=== PATIENT | female | born 1975 | race Caucasian/White ===

== ENCOUNTER 2025-07-19 07:42 | Outpatient (CLI) | payer OTHER, SELFPAY ==
--- OUTSIDE RECORDS SUMMARY | 2024-04-11 16:30 | XMS_ITS ---
Author Organization [facility] [place] ([address]) Address [address] [place] [address] Care Team Providers Care Land Degradation Analyst Name Role Phone Renaldo Anaya Primary Care Provider Unavailab le Soraida Lange Unavailable [phone] ZZ-Migration, Provider Unavailable Unavailab le REASON FOR VISIT [facility] To [facility] Conversion Encounter Medications Medication SIG (Take, Route, Frequency, Duration) Notes Start Date End Date Status Flonase Allergy Relief 50 MCG/ACT 1 spray(s) intranasally once a day Not-Taking predniSONE 20 MG ; Duration: 6 Active Arnuity Ellipta 100 MCG/ACT 100 mcg inhaled every 24 hours; Duration: 90 days Active Azelastine HCl 137 MCG/SPRAY 2 spray(s) intranasally 2 times a day; Duration: 90 days Active Xyzal Allergy 24HR 5 MG 1 tablet PO daily Active PROAIR HFA 90 MCG/INH INHALE 2 PUFFS PO Q 4 H PRF SOB; Duration: 16 *Please review for potential replacement for e-prescription and drug interaction check* Active Encounters Encounter Location Date Provider Diagnosis [facility] [place] [address] 04/11/2024 Provider ZZ-Migration Allergic rhinitis due to pollen J30.1 and Chronic sinusitis, unspecified J32.9 Assessments Encounter Date Diagnosis (ICD Code) Assessment Notes Treatment Notes Treatment Clinical Notes Section Notes 04/11/2024 Allergic rhinitis due to pollen (ICD-10 - J30.1) 04/11/2024 Chronic sinusitis, unspecified (ICD-10 - J32.9) Plan Of Treatment Medication Medication Name Sig Start Date Stop Date Notes Arnuity Ellipta 100 MCG/ACT 100 mcg inha led every 24 hours; Duration: 90 days Azelastine HCl 137 MCG/SPRAY 2 spray(s) intranasally 2 times a day; Duration: 90 days Xyzal Allergy 24HR 5 MG 1 tablet PO daily Progress Notes * Miguel Angel WEIRB: 5 (49 yo F)Acc No.[id number]:04/11/2024 Patient: Javy TRUJILLO Provider: January Frey :1975 A ge:48 Y S ex:Female Date:04/11/2024 Address:[address] [place], [place] [id number] Pcp:Renaldo Anaya Subjective: * Chief Complaints: * 1 . [facility] To [facility] Conversion Encounter. * Medical History: * Medications: T aking PROAIR HFA 90 MCG/INH AEROSOL INHALE 2 PUFFS PO Q 4 H PRF SOB , Notes to Pharmacist: *Please review for potential replacement for e-prescription and drug interaction check*, Taking predniSONE 20 MG Tablet , Not-Taking/PRN Flonase Allergy Relief 50 MCG/ACT Suspension 1 spray(s) intranasally once a day Objective: * Vitals: Assessment: * Assessment: 1. A llergic rhinitis due to pollen - J30.1 2 . C hronic sinusitis, unspecified - J32.9 Plan: * Treatment: 2. C hronic sinusitis, unspecified Continue Azelastine HCl Solution, 137 MCG/SPRAY, 2 spray(s), intranasally, 2 times a day, 90 days, 3, Refills 1. 3. O thers Refill Arnuity Ellipta Aerosol Powder Breath Activated, 100 MCG/ACT, 100 mcg, inhaled, every 24 hours, 90 days, 3, Refills 1. * Billing Information: * Visit Code: * Procedure Codes: * Electronic signature of Priscila BRANTLEY-Shante on 07/19/2025 at 07:59 AM CDT Sign off status: Pending * Provider: January Frey Date: 0 04/11/2024 Generated for Lou marin/Kamron/Luiza on: 0 07/19/2025 07:59 AM CDT
--- OUTSIDE RECORDS SUMMARY | 2024-10-06 12:30 | XMS_ITS ---
Author Organization [facility] [place] ([address]) Address [address] [place] [address] Care Team Providers Care Production Scheduler Name Role Phone Renaldo Anaya Primary Care Provider Unavailab Soraida Culver Unavailable [phone] REASON FOR VISIT [facility] follow-up Encounters Encounter Location Date Provider Diagnosis [facility] [address] [place] [address] 10/06/2024 Soraida Lange Plan Of Treatment No Information Progress Notes * Miguel Angel WEIRB: 5 (49 yo F)Acc No.[id number]:10/06/2024 Progress Notes Patient: Javy TRUJILLO Provider: Ivan Lange MD :1975 A ge:48 Y S ex:Female Date:10/06/2024 Address:[address] [place] Pcp:Renaldo Anaya Subjective: * Chief Complaints: * 1 . ARC follow-up. * Medical History: Objective: * Vitals: Assessment: Plan: * Treatment: * Billing Information: * Visit Code: * Procedure Codes: * Electronic signature of Clarice Lange MD on 07/19/2025 at 08:01 AM CDT Sign off status: Pending * Provider: Ivan Lange MD Date: 1 12/07/2023 Generated for Lou marin/Kamron/Luiza on: 0 07/19/2025 08:01 AM CDT
--- OUTSIDE RECORDS SUMMARY | 2024-11-12 12:30 | XMS_ITS ---
Author Organization [facility] [place] ([address]) Address [address] [place] [address] Care Team Providers Care Javascript Ui Developer Name Role Phone Renaldo Anaya Primary Care Provider Unavailab Soraida Culver Unavailable [phone] Laure Zhong Unavailable [phone] REASON FOR VISIT [facility] follow-up Encounters Encounter Location Date Provider Diagnosis [address] [address] 11/12/2024 Laure Zhong Plan Of Treatment No Information Progress Notes * Kyle WEIRaDOB: 5 (49 yo F)Acc No.[id number]:11/12/2024 Progress Notes Patient: Javy TRUJILLO Provider: JERRELL Johnson :1975 A ge:49 Y S ex:Female Date:11/12/2024 [address] [facility] Pcp:Renaldo Anaya Subjective: * Chief Complaints: * 1 . ARC follow-up. * Medical History: Objective: * Vitals: Assessment: Plan: * Treatment: * Billing Information: * Visit Code: * Procedure Codes: * Electronic signature of Laure Zhong DNP, FNP-C on 07/19/2025 at 08:00 AM CDT Sign off status: Pending * Provider: Jose Manuel Zhong DNP RATE EXAMINER-C Date: 0 11/12/2024 Generated for Lou Baker on: 0 07/19/2025 08:00 AM CDT
--- NOTE | ~2025-07-19 | US_ITS ---
EXAMINATION: US thyroid DATE: 07/19/2025 10:35 INDICATION: Syncope and collapse. Thyroid nodules. TECHNIQUE: Multiple ultrasound images of the thyroid were obtained. COMPARISON: 10/09/2018 FINDINGS: The right thyroid lobe measures 5.1 x 2.3 x 1.9 cm. The left thyroid lobe measures 5.9 x 2.5 x 1.6 cm. No significant interval change in a previously 0.9 cm, currently 1.0 cm solid wider than tall isoechoic nodule with smooth margins the superficial right thyroid lobe (TI-RADS 3, mildly suspicious , FNA if >=2.5 cm, annual followup is >=1.5 cm). Slight decrease in size of a previously 10 mm, currently 6 mm solid wider than tall hypoechoic nodule at the deep right thyroid lobe. (TI-RADS 4, moderately suspicious , FNA if >=1.5 cm, annual followup is >=1 cm). Minimal increase in size of a previously 1.4 cm, currently 1.5 cm round solid isoechoic nodule with smooth to ill-defined margins and without echogenic foci in the left thyroid lobe, also TI-RADS 4. IMPRESSION: 1. No significant change in a few bilateral thyroid nodules, the largest a 1.5 cm TI RADS 4 left thyroid nodule which at the threshold for recommendation for biopsy, given interval stability over nearly 7 years however could consider continued ultrasound follow-up. Reviewed, dictated and finalized at location A. IMPRESSION: 1. No significant change in a few bilateral thyroid nodules, the largest a 1.5 cm TI RADS 4 left thyroid nodule which at the threshold for recommendation for biopsy, given interval stability over nearly 7 years however could consider con tinued ultrasound follow-up.
--- OUTSIDE RECORDS SUMMARY | 2025-07-19 07:59 | XMS_ITS | Encounter Summary ---
Author Organization [facility] Address [address] [place] [address] Care Team Providers Care Product Promoter Sales Person Name Role Phone Renaldo Anaya MD Primary Care Provider Encounter Details Date Type Department Care Team (Late st Contact Info) Description 12/12/2023 MyChart Message Enc [facility] Family Medicine - [place] [address] [place] [address] Renaldo Anaya MD [address] [place], [place] [phone] Not a question but a drop of latest test results Social History Tobacco Use Types Packs/Day Years Used Date Smoking Tobacco: Never Passive Smoke Exposure: Never Smokeless Tobacco: Never Comments:Physician will disc uss if necessary Alcohol Use Standard Drinks/Week Comments Not Currently 0 (1 standard drink = 0.6 oz pure alcohol) Alcohol is maybe 1 drink rvery 2-3 months. It messed with my PHQ-2 Answer Date Recorded Patient Health Questionnaire-2 Score 0 12/12/2023 Comments No Sex and Gender Information Value Date Recorded Sex Assigned at Female 02/26/2025 8:59 AM CDT Legal Sex Female 10:38 PM CDT Gender Identity Female 02/26/2025 8:59 AM CDT Sexual Orientation Straight 02/26/2025 8: 59 AM CDT documented as of this encounter Functional Status * Over the past 2 weeks, how often have you been bothered by any of the following problems? Question Answer Date of Assessment Author Status Little interest or pleasure in doing things Not at all 12/12/2023 8:27 AM DEMENTIA PROGRAM DIRECTOR Gilbert Myrick , Nurse Can Stacker I Active Feeling down, depressed, or hopeless Not at all 12/12/2023 8:27 AM DEMENTIA PROGRAM DIRECTOR Lang Myrick, Nurse Can Stacker I Active Patient Health Questionnaire-2 Score 0 12/12/2023 8:27 AM DEMENTIA PROGRAM DIRECTOR Gilbert Myrick, Nurse Can Stacker I Active documented as of this encounter Plan of Treatment Not on file documented as of this encounter Visit Diagnoses Not on filedocumented in this encounter Additional Health Concerns Infection Onset Date Last Indicated Resolved Time COVID-19 Rule Out 11/10/2024 11/10/2024 11/10/2024 2:43 PM DEMENTIA PROGRAM DIRECTOR Assessment Noted Time PHQ-9 Depression Total Score: 19 023 8:06 AM CDT documented as of this encounter Care Teams Product Promoter Sales Person Relationship Specialty Start Date End Date Renaldo Anaya MD [address] [place] [address] PCP - General FAMILY PRACTICE 12/21/20 documented as of this encounter
--- OUTSIDE RECORDS SUMMARY | 2025-07-19 07:59 | XMS_ITS | Encounter Summary ---
Author Organization [facility] [place] [facility] Address [address] [place] [address] Care Team Providers Care Cabinet Builder Name Role Phone Renaldo Anaya MD Primary Care Provider Encounter Details Date Type Department Care Team (Late st Contact Info) Description 01/01/2024 MyChart Message Enc [facility] Family Medicine - [place] [address] [place] [address] Renaldo Anaya MD [address] [place], [place] [phone] Heavy Metal hair test Social History Tobacco Use Types Packs/Day Years [...] AM CDT documented as of this encounter Plan of Treatment Not on file documented as of this encounter Visit Diagnoses Not on filedocumented in this encounter Additional Health Concerns Infection Onset Date Last Indicated Resolved Time COVID-19 Rule Out 11/10/2024 11/10/2024 11/10/2024 2:43 PM ADVANCED PRACTICE PROFESSIONAL Assessment Noted Time PHQ-9 Depression Total Score: 19 023 8:06 AM CDT documented as of this encounter Care Teams Cabinet Builder Relationship Specialty Start Date End Date Renaldo Anaya MD [address] [address] PCP - General FAMILY PRACTICE 12/21/20 documented as of this encounter
--- OUTSIDE RECORDS SUMMARY | 2025-07-19 07:59 | XMS_ITS | Encounter Summary ---
Author Organization [facility] Address [address] [place] [address] Care Team Providers Care C D Stripper Name Role Phone Renaldo Anaya MD Primary Care Provider Encounter Details Date Type Department Care Team (Late st Contact Info) Description 05/21/2024 MyChart Message Enc [facility] Family Medicine - [place] [address] [place] [address] Renaldo Anaya MD [address] [place], [place] [phone] Stye on my eyelid? Social History Tobacco Use Types Packs/Day Years [...] Rule Out 11/10/2024 11/10/2024 11/10/2024 2:43 PM BAR PILOT Assessment Noted Time PHQ-9 Depression Total Score: 19 023 8:06 AM CDT documented as of this encounter Care Teams C D Stripper Relationship Specialty Start Date End Date Renaldo Anaya MD [address] [place] [address] PCP - General FAMILY PRACTICE 12/21/20 documented as of this encounter
--- OUTSIDE RECORDS SUMMARY | 2025-07-19 08:00 | XMS_ITS | Encounter Summary ---
Author Organization [facility] Care Team Providers Care Mitochondrial Disorders Counselor Name Role Phone Renaldo Anaya MD Primary Care Provider +1- [phone] Encounter Details Date Type Department Care Team (Latest Contact Info) Description 10/16/2018 Orders Only [facility] ProviderMary MD [address] [place] [address] Social History Tobacco Use Types Packs/Day Years Used Date Smoking Tobacco: Never Assessed Comments Unknown Sex and Gender Information Value Date Recorded Sex Assigned at Not on file Legal Sex Female 7:11 PM INTERNAL INVESTIGATOR Gender Identity Not on file Sexual Orientation Not on file documented as of this encounter Plan of Treatment Not on file documented as of this encounter Procedures Procedure Name Priority Date/Time Associated Diagnosis Comments SCAN - LABS 09/24/2018 12:00 AM INTERNAL INVESTIGATOR SCAN - LABS 09/24/2018 12:00 AM INTERNAL INVESTIGATOR SCAN - LABS 09/24/2018 12:00 AM INTERNAL INVESTIGATOR SCAN - LABS 09/24/2018 12:00 AM INTERNAL INVESTIGATOR SCAN - LABS 09/24/2018 12:00 AM INTERNAL INVESTIGATOR documented in this encounter Results * SCAN - LABS (09/24/2018 12:00 AM INTERNAL INVESTIGATOR) Narrative 09/24/2018 12:00 AM INTERNAL INVESTIGATOR Ordered by an unspecified provider. us Historical Provider MD Final Res ult * SCAN - LABS (09/24/2018 12:00 AM INTERNAL INVESTIGATOR) Narrative 09/24/2018 12:00 AM INTERNAL INVESTIGATOR Ordered by an unspecified provider. Historical Provider MD Final Res ult * SCAN - LABS (09/24/2018 12:00 AM INTERNAL INVESTIGATOR) Narrative 09/24/2018 12:00 AM INTERNAL INVESTIGATOR Ordered by an unspecified provider. [facility] Provider MD Final Res ult * SCAN - LABS (09/24/2018 12:00 AM INTERNAL INVESTIGATOR) Narrative 09/24/2018 12:00 AM INTERNAL INVESTIGATOR Ordered by an unspecified provider. [facility] Provider MD Final Res ult * SCAN - LABS (09/24/2018 12:00 AM INTERNAL INVESTIGATOR) Narrative 09/24/2018 12:00 AM INTERNAL INVESTIGATOR Ordered by an unspecified provider. [facility] Provider Final Res ult documented in this encounter Visit Diagnoses Not on filedocumented in this encounter Care Teams Mitochondrial Disorders Counselor Relationship Specialty Start Date End Date Renaldo Anaya MD [address] [address] PCP - General Family Medicine 09/04/21 documented as of this encounter
--- OUTSIDE RECORDS SUMMARY | 2025-07-19 08:00 | XMS_ITS | Clinical Summary ---
Author Organization [address] Address [address] [place] [address] Care Team Providers Care Wood Fence Erector Name Role Phone Renaldo Anaya MD Primary Care Provider +1- [phone] Allergies Active Allergy Reactions Criticality Noted Date Comments [place] Smut Allergenic Extract Rhinitis Low 022 Pollen Extracts Rhinitis Low 11/06/2021 Medications traZODone (DESYREL) 50 mg tablet TAKE 1 TABLET BY MOUTH AT BEDTIME NEEDED 90 tablet 08/07/20 19 Active acetaminophen 325 mg capsule Tylenol; as directed prn; 0; -May-2013; Active 06/02/20 13 Active albuterol HFA (PROVENTIL HFA,VENTOLIN HFA,PROAIR HFA) 90 mcg/actuation inhaler Inhale 2 puffs as needed 10/18/20 17 Active bisoprolol (ZEBETA) 5 mg tablet 11/23/19 22 Active topiramate (TOPAMAX) 100 mg tablet 11/23/19 22 Active melatonin 5 mg capsule Take by mouth Active multivitamin capsule Take 1 capsule by mouth daily Active phentermine (ADIPEX-P) 37.5 mg tablet Take 37.5 mg by mouth daily 01/11/20 22 Active naproxen (NAPROSYN) 500 mg tabletIndicati ons:Pain Take 1 tablet (500 mg total) by mouth 2 (two) times a day with meals 30 tablet 03/20/20 22 Active methocarbamoL (ROBAXIN) 500 mg tablet Take 1 tablet (500 mg total) by mouth 3 (three) times a day as needed for muscle spasms 30 tablet 03/20/20 Active buPROPion (WELLBUTRIN) 75 mg tablet Take 75 mg by mouth 2 (two) times a day 06/18/20 Active eszopiclone (LUNESTA) 3 mg tabletIndicati ons:Primary insomnia TAKE 1 TABLET BY MOUTH NIGHTLY IMMEDIATELY BEFORE BETIME 30 tablet 12/10/19 Active sertraline (ZOLOFT) 50 mg tablet 11/23/19 22 022 Discontinued Active Problems Problem Noted Date Diagnosed Date Situational mixed anxiety and depressive disorde r 01/10/2022 COVID 11/06/2021 COVID-19 virus infection 11/06/2021 Impingement syndrome of right shoulder Dysthymia 05/24/2021 Renal insufficiency 01/18/2021 Palpitations 11/30/2019 Atrial arrhythmia 04/29/2019 Mild persistent asthma without complication 06/29 Non-seasonal allergic rhinitis 07/25/2018 Raynaud's syndrome without gangrene 07/25/2018 Asthma 02/03/2018 Presence of cardiac pacemaker 08/12/2017 Presence of cardiac pacemaker 08/12/2017 Fear of flying 05/01/2016 Recurrent genital HSV (herpes simplex virus) inf ection 11/28/2015 GERD (gastroesophageal reflux disease) 6 Sjogren-Viky syndrome 04/11/2015 Primary insomnia 04/11/2015 Assessment & Plan (11/12/2023 3:43 PM 2 YEAR OLDS PRESCHOOL TEACHER): Patient continue to use Lunesta 3 mg p.o. Q bedtime. Assessment & Plan (07/30/2023 12:27 PM CDT): I have sent a prescription to the pharmacy for Quviuq 50 mg p.o. Q bedtime. The patient states that she does have approximately one week left of Lunesta. Assessment & Plan (01/14/2023 9:24 AM CDT): The patient will continue Lunesta 3 mg nightly. Patient will continue with cognitive behavior therapy, journaling, exercise, and meditation. Resolved Problems Problem Noted Date Diagnosed Date Resolved Date Primary insomnia 11/28/2021 01/14/2023 Assessment & Plan (01/11/2022 3:11 PM CDT): Patient continue with cognitive behavior therapy and sleep hygiene. Patient continue to the use Lunesta 1.5 mg to 3 mg at night while sleeping. Assessment & Plan (11/28/2021 2:52 PM 2 YEAR OLDS PRESCHOOL TEACHER): The patient has battled insomnia her entire life. I will refill her Lunesta to use 1.5-3 mg at bedtime in addition to melatonin 5 mg at bedtime. We had a long discussion regarding cognitive behavioral therapy for insomnia. I also discussed sleep restriction and good sleep hygiene. I have given her the 2 brochures that are published by the [employer]. She will follow-up here in 6 weeks to assess her progress. Insomnia, psychophysiological 07/25/2018 01/14/2023 Surgical History Surgery Date Site/Laterality Comments INSERT / REPLACE / REMOVE PACEMAKER x2 SINUS SURGERY x2 CERVICAL BIOPSY W/ LOOP ELECTRODE EXCISION HYSTERECTOMY still has ovaries TONSILLECTOMY WISDOM TOOTH EXTRACTION Medical History Medical History Date Comments Pacemaker Anxiety Depression Migraine Social History Tobacco Use Types Packs/Day Years Used Date Smoking Tobacco: Passive Smo ke Exposure - Never Smoker Smokeless Tobacco: Never Comments:as a kid AUDIT-C Answer Date Recorded Q1: How often do you have a drink containing alc ohol? Monthly or less 01/11/2022 Average Number of Drinks Not on file 022 Q3: How often do you have si x or more drinks on one occasion? Never 01/11/2022 Personal Safety Answer Date Recorded Getting School Help Needed Not on file 10/13 Comments No Sex and Gender Information Value Date Recorded Sex Assigned at Not on file Legal Sex Female 7:11 PM 2 YEAR OLDS PRESCHOOL TEACHER Gender Identity Not on file Sexual Orientation Not on file Obstetrics History Last Filed Vital Signs Vital Sign Reading Time Taken Comments Blood Pressure 106/60 11/12/2023 3:28 PM 2 YEAR OLDS PRESCHOOL TEACHER Pulse 90 11/12/2023 3:28 PM 2 YEAR OLDS PRESCHOOL TEACHER Temperature 36.3 C (97.4 F) 11/12/2023 3:28 PM 2 YEAR OLDS PRESCHOOL TEACHER Respiratory Rate 18 11/12/2023 3:28 PM 2 YEAR OLDS PRESCHOOL TEACHER Oxygen Saturation 97% 11/12/2023 3:28 PM 2 YEAR OLDS PRESCHOOL TEACHER Inhaled Oxygen Concentration - - Weight 90.3 kg (199 lb) 11/12/2023 3:28 PM 2 YEAR OLDS PRESCHOOL TEACHER Height 175.3 cm (5' 9) 11/12/2023 3:28 PM 2 YEAR OLDS PRESCHOOL TEACHER Body Mass Index 29.39 11/12/2023 3:28 PM 2 YEAR OLDS PRESCHOOL TEACHER Plan of Treatment Health Maintenance Due Date Last Done Comments Breast Cancer Screening-Mammogram 1975 Colon Cancer Screening-Colonoscopy 1975 Depression Screening 1975 Hepatitis C Screening 1975 Hepatitis B Screening 1993 Regular Well Visit/Exam 18-64 1993 Pneumococcal vaccine <65 (1 of 2 - PCV) 1994 Influenza Vaccine (#1) 2025 DTaP/Tdap/Td Vaccine (2 - Td or Tdap) 09/14/2032 Insurance [facility] CHOICE PLUS [facility] Care Teams Wood Fence Erector Relationship Specialty Start Date End Date Renaldo Anaya MD [address] [place] [address] PCP - General Family Medicine 09/04/21
--- OUTSIDE RECORDS SUMMARY | 2025-07-19 08:00 | XMS_ITS | Encounter Summary ---
Author Organization [facility] Address [address] [place] [address] Care Team Providers Care Felt Cementer Name Role Phone Renaldo Anaya MD Primary Care Provider Encounter Details Date Type Department Care Team (Late st Contact Info) Description 11/27/2022 Spare Backupt Message Enc [facility] Family Medicine - [place] [address] [place] [address] Renaldo Anaya MD [address] [place], [place] [phone] Biometrics results pics in message Social History Tobacco Use Types Packs/Day Years Used Date Smoking Tobacco: Never Smokeless Tobacco: Never Comments:Physician will disc uss if necessary Alcohol Use Standard Drinks/Week Comments Not Currently 0 (1 standard drink = 0.6 oz pur e alcohol) PHQ-2 Answer Date Recorded Patient Health Questionnaire-2 Score 0 11/07/2022 Comments No Sex and Gender Information Value Date Recorded Sex Assigned at Female 02/26/2025 8:59 AM CDT Legal Sex Female 10:38 PM CDT Gender Identity Female 02/26/2025 8:59 AM CDT Sexual Orientation Straight 02/26/2025 8: 59 AM CDT COVID-19 Exposure Response Date Recorded In the last 10 days, have yo u been in contact with someone who was confirmed or suspected to have Coronavirus/COVID-19? No / Unsure 11/07/2022 10:09 AM WELT CUTTER documented as of this encounter Progress Notes * Gilbert Myrick MA - 11/27/2022 9:22 AM CSTFrom: Javy Fields To: Dr. Renaldo Anaya Sent: 11/27/2022 8:26 AM WELT CUTTER Subject: Biometrics results pics in message Here are my ???s and my results. I???m on his hippa. He???s also a patient. I know a few numbers are high on both of ours. We are gonna change some things and lower elwha back on 6 months and see if the number drop before we take meds. Very disappointed in ourselves. That parental disappointment.Lol . CUTTER documented in this encounter Plan of Treatment Not on file documented as of this encounter Visit Diagnoses Not on filedocumented in this encounter Additional Health Concerns Infection Onset Date Last Indicated Resolved Time COVID-19 Rule Out 11/10/2024 11/10/2024 11/10/2024 2:43 PM WELT CUTTER Assessment Noted Time PHQ-9 Depression Total Score: 19 022 7:31 AM CDT documented as of this encounter Care Teams Felt Cementer Relationship Specialty Start Date End Date Renaldo Anaya MD [address] [facility] [address] [place] [address] PCP - General FAMILY PRACTICE 12/21/20 documented as of this encounter
--- OUTSIDE RECORDS SUMMARY | 2025-07-19 08:00 | XMS_ITS | Encounter Summary ---
Author Organization [facility] Address [address] [place] [address] Care Team Providers Care Telephone Triage Nurse Name Role Phone Renaldo Anaya MD Primary Care Provider Encounter Details Date Type Department Care Team (Late st Contact Info) Description 06/22/2021 MyChart Message Enc [facility] Family Medicine - [place] [address] [place] [address] Renaldo Anaya MD [address] [place], [place] [phone] RE: Medication Questions Social History Tobacco Use Types Packs/Day Years Used Date Smoking Tobacco: Never Smokeless Tobacco: Never Comments:Physician will disc uss if necessary Alcohol Use Standard Drinks/Week Comments Not Currently 0 (1 standard drink = 0.6 oz pur e alcohol) PHQ-2 Answer Date Recorded PHQ-2 Score - If the patient scores above 3, please move on to questions 3-9 0 01/18/2021 Comments No Sex and Gender Information Value Date Recorded Sex Assigned at Female 02/26/2025 8:59 AM CDT Legal Sex Female 10:38 PM CDT Gender Identity Female 02/26/2025 8:59 AM CDT Sexual Orientation Straight 02/26/2025 8: 59 AM CDT COVID-19 Exposure Response Date Recorded In the last month, have you been in contact with someone who was confirmed or suspected to have Coronavirus / COVID-19? No / Unsure 05/24/2021 9:04 AM CDT documented as of this encounter Plan of Treatment Not on file documented as of this encounter Visit Diagnoses Not on filedocumented in this encounter Additional Health Concerns Infection Onset Date Last Indicated Resolved Time COVID-19 Rule Out 06/29/2021 06/29/2021 06/30/2021 2:36 PM CDT COVID-19 Rule Out 11/10/2024 11/10/2024 11/10/2024 2:43 PM CONTROL SYSTEMS DRAFTING OFFICER documented as of this encounter Care Teams Telephone Triage Nurse Relationship Specialty Start Date End Date Renaldo Anaya MD [address] [address] PCP - General FAMILY PRACTICE 12/21/20 documented as of this encounter
--- OUTSIDE RECORDS SUMMARY | 2025-07-19 08:00 | XMS_ITS | Encounter Summary ---
Author Organization [facility] Address [address] [place] [address] Care Team Providers Care Surgical Elastic Knitter Name Role Phone Renaldo Anaya MD Primary Care Provider Encounter Details Date Type Department Care Team (Late st Contact Info) Description 09/05/2022 Posit Science Message Enc [facility] Medical [facility] Family Medicine - [place] [address] [place] [address] [facility] Provider Response Social History Tobacco Use Types Packs/Day Years Used Date Smoking Tobacco: Never Smokeless Tobacco: Never Comments:Physician will disc uss if necessary Alcohol Use Standard Drinks/Week Comments Not Currently 0 (1 standard drink = 0.6 oz pur e alcohol) PHQ-2 Answer Date Recorded PHQ-2 Score - If the patient scores above 3, please move on to questions 3-9 3 08/09/2022 Comments No Sex and Gender Information Value [...] suspected to have Coronavirus/COVID-19? No / Unsure 08/09/2022 7:03 AM CDT documented as of this encounter Plan of Treatment Not on file documented as of this encounter Visit Diagnoses Not on filedocumented in this encounter Additional Health Concerns Infection Onset Date Last Indicated Resolved Time COVID-19 Rule Out 11/10/2024 11/10/2024 11/10/2024 2:43 PM SHELL MOLDING ROLLER BLAST OPERATOR Assessment Noted Time PHQ-9 Depression Total Score: 19 022 7:31 AM CDT documented as of this encounter Care Teams Surgical Elastic Knitter Relationship Specialty Start Date End Date Renaldo Anaya MD [address] [address] PCP - General FAMILY PRACTICE 12/21/20 documented as of this encounter
--- OUTSIDE RECORDS SUMMARY | 2025-07-19 08:00 | XMS_ITS | Clinical Summary ---
Author Organization [facility] Address [address] [facility] [place] [address] Care Team Providers Care Electronic Publisher Name Role Phone Rosales Adamson MD Primary Care Provider + [phone] Source Comments [facility],non-owned Affiliates and Associated Physician Practices is amultiple site organization consisting of ambulatory clinics and hospital sitesin [place], [place], [place] and [place]. This disclosure is being madepursuant to the Care Everywhere program and may not contain all information available regarding this patient. Last updated 18.[facility] Allergies No known active allergies Medications * Be aware that medications may not be up to date on this document. Alwaysverify current medications with the patient. fluticasone propionate (FLONASE) 50 MCG/ACT nasal sprayIndication s:Acute maxillary sinusitis, recurrence not specified [place] 2 Sprays into each nostril once daily 1 Bottle 11/26/2016 Active fexofenadine (MALCOLM) 180 MG tablet Take 180 mg by mouth Active albuterol HFA (PROVENTIL;VENT PEÑA;PROAIR) 108 (90 BASE) MCG/ACT inhaler Inhale 2 puffs by mouth every 6 hours as needed for Wheezing or Cough 1 Inhaler 10/18/2017 Active fluticasone furoate (ARNUITY) 100 MCG/ACT inhaler Inhale 1 puff by mouth once daily Active Family History Medical History Relation Name Comments Cancer - Other Father lung cancer Cancer - Other Mother pancreatic Thyroid Disease Mother Relation Name Status Comments Father Alive Mother Social History Tobacco Use Types Packs/Day Years Used Date Smoking Tobacco: Never Smokeless Tobacco: Never Tobacco Cessation:Counseling Given: No Alcohol Use Standard Drinks/Week Comments No 0 (1 standard drink = 0.6 oz pur e alcohol) Comments No Sex and Gender Information Value Date Recorded Sex Assigned at Not on file Legal Sex Female 8:41 AM AUTOMATIC MACHINE ATTENDANT Gender Identity Not on file Sexual Orientation Not on file Last Filed Vital Signs Vital Sign Reading Time Taken Comments Blood Pressure 110/60 07/09/2018 12:31 PM CDT Pulse 91 07/09/2018 12:31 PM CDT Temperature 36.6 C (97.9 F) 07/09/2018 12:31 PM CDT Respiratory Rate 16 07/09/2018 12:31 PM CDT Oxygen Saturation 98% 10/23/2017 5:19 PM AUTOMATIC MACHINE ATTENDANT Inhaled Oxygen Concentration - - Weight 86.2 kg (190 lb) 07/09/2018 12:31 PM CDT Height 172.7 cm (5' 8) 07/09/2018 12:31 PM CDT Body Mass Index 28.89 07/09/2018 12:31 PM CDT Plan of Treatment Health Maintenance Due Date Last Done Comments COLOGUARD (AGES 45-75) - COL ON CA SCREENING 1975 COLON MONITORING 1975 COLONOSCOPY - COLON CA SCREENING 1975 CT COLONOGRAPHY - COLON CA SCREENING 1975 Colorectal Cancer Screening 1975 FIT - COLON CA SCREENING 1975 FLEX SIG - COLON CA SCREENING 1975 LIPID TESTING 1975 MAMMOGRAM 1975 HIV SCREENING 1990 HEPATITIS C SCREENING 10/14/1993 DTAP/TDAP/TD VACCINES (1 - Tdap) 1994 HEPATITIS B VACCINE (1 of 3 - 19+ 3-dose series) 1994 SCREENING FOR DIABETES 10/18/2017 DEPRESSION SCREENING 10/28/2024 COVID-19 VACCINE (1 - 2023-2 5 season) 2025 INFLUENZA VACCINE (#1) 2025 ZOSTER VACCINE (1 of 2) 2025 HIB VACCINE Aged Out No longer eligi ble based on patient's age to complete this topic HPV VACCINE Aged Out No longer eligi ble based on patient's age to complete this topic MENINGOCOCCAL (Group B) VACC INE SHARED DECISION-MAKING Aged Out No longer eligibl e based on patient's age to complete this topic MENINGOCOCCAL GROUPS A/C/Y/W VACCINE Aged Out No longer eligible b ased on patient's age to complete this topic Insurance [facility] Care Teams Electronic Publisher Relationship Specialty Start Date End Date Rosales Adamson MD PCP - General 07/22/20
--- OUTSIDE RECORDS SUMMARY | 2025-07-19 08:00 | XMS_ITS | Encounter Summary ---
Author Organization [facility] Address [address] [place] [address] Care Team Providers Care Preschool Assistant Name Role Phone Renaldo Anaya MD Primary Care Provider Encounter Details Date Type Department Care Team (Late st Contact Info) Description 06/18/2022 MyChart Message Enc [facility] Family Medicine - [place] [address] [place] [address] Renaldo Anaya MD [address] [place], [place] [phone] Finally have therapist appt. But ??? Social History Tobacco Use Types Packs/Day Years Used Date Smoking Tobacco: Never Smokeless Tobacco: Never Comments:Physician will disc uss if necessary Alcohol Use Standard Drinks/Week Comments Not Currently 0 (1 standard drink = 0.6 oz pur e alcohol) PHQ-2 Answer Date Recorded PHQ-2 Score - If the patient scores above 3, please move on to questions 3-9 0 01/10/2022 Comments No Sex and Gender Information Value [...] Rule Out 11/10/2024 11/10/2024 11/10/2024 2:43 PM JAVA ORACLE DEVELOPER Assessment Noted Time PHQ-9 Depression Total Score: 0 01/11/20 8:16 AM CDT documented as of this encounter Care Teams Preschool Assistant Relationship Specialty Start Date End Date Renaldo Anaya MD [address] [place] [address] PCP - General FAMILY PRACTICE 12/21/20 documented as of this encounter
--- OUTSIDE RECORDS SUMMARY | 2025-07-19 08:00 | XMS_ITS | Encounter Summary ---
Author Organization [facility] Address [address] [place] [address] Care Team Providers Care Adult Care Provider Name Role Phone Renaldo Anaya MD Primary Care Provider Encounter Details Date Type Department Care Team (Late st Contact Info) Description 08/21/2021 MyChart Message Enc [facility] Medical [facility] Family Medicine - [place] [address] [place] [address] Renaldo Anaya MD [address] [place], [place] [phone] RE: Question Social History Tobacco Use Types Packs/Day Years [...] have Coronavirus / COVID-19? No / Unsure 08/10/2021 9:30 AM CDT documented as of this encounter Plan of Treatment Not on file documented as of this encounter Visit Diagnoses Not on filedocumented in this encounter Additional Health Concerns Infection Onset Date Last Indicated Resolved Time COVID-19 Rule Out 11/10/2024 11/10/2024 11/10/2024 2:43 PM MACHINE TRIMMER documented as of this encounter Care Teams Adult Care Provider Relationship Specialty Start Date End Date Renaldo Anaya MD [address] [address] PCP - General FAMILY PRACTICE 12/21/20 documented as of this encounter
--- OUTSIDE RECORDS SUMMARY | 2025-07-19 08:00 | XMS_ITS | Encounter Summary ---
Author Organization [facility] Address [address] [place] [address] Care Team Providers Care Cafe Operator Name Role Phone Renaldo Anaya MD Primary Care Provider Encounter Details Date Type Department Care Team (Late st Contact Info) Description 04/24/2023 Spikes Cavell & Cot Message Enc [facility] Medical Group - [facility] [address] [place], [place] [address] AudioCaseFiles, [facility] Provider Air Quality Message Social History Tobacco Use Types Packs/Day Years Used Date Smoking Tobacco: Never Passive Smoke Exposure: Never Smokeless Tobacco: Never Comments:Physician will disc uss if necessary Alcohol Use Standard Drinks/Week Comments Not Currently 0 (1 standard drink = 0.6 oz pur e alcohol) PHQ-2 Answer Date Recorded Patient Health Questionnaire-2 Score 6 01/21/2023 Comments No Sex and Gender Information Value [...] Rule Out 11/10/2024 11/10/2024 11/10/2024 2:43 PM PACKAGING MECHANIC Assessment Noted Time PHQ-9 Depression Total Score: 19 023 8:06 AM CDT documented as of this encounter Care Teams Cafe Operator Relationship Specialty Start Date End Date Renaldo Anaya MD [address] [address] PCP - General FAMILY PRACTICE 12/21/20 documented as of this encounter
--- OUTSIDE RECORDS SUMMARY | 2025-07-19 08:00 | XMS_ITS | Encounter Summary ---
Author Organization [facility] Address [address] [place] [address] Care Team Providers Care Side Seam Machine Operator Name Role Phone Renaldo Anaya MD Primary Care Provider Encounter Details Date Type Department Care Team (Late st Contact Info) Description 03/02/2022 ShapeUp Message [facility] Patient Accounts [address] [place], [place] [phone] [facility] Provider Monthly Credit Card Payments Social History Tobacco Use Types Packs/Day Years [...] Rule Out 11/10/2024 11/10/2024 11/10/2024 2:43 PM FITNESS CENTRE MANAGER Assessment Noted Time PHQ-9 Depression Total Score: 0 01/11/20 8:16 AM CDT documented as of this encounter Care Teams Side Seam Machine Operator Relationship Specialty Start Date End Date Renaldo Anaya MD [address] [place] [address] PCP - General FAMILY PRACTICE 12/21/20 documented as of this encounter
--- OUTSIDE RECORDS SUMMARY | 2025-07-19 08:00 | XMS_ITS | Encounter Summary ---
Author Organization [facility] Address [address] [place] [address] Care Team Providers Care Contracting Executive Name Role Phone Renaldo Anaya MD Primary Care Provider Encounter Details Date Type Department Care Team (Late st Contact Info) Description 11/06/2021 MyChart Message Enc [facility] Medical [facility] Family Medicine - [place] [address] [place] [address] Renaldo Anaya MD [address] [place], [place] [phone] I tested positive for covid on home test. What now Social History Tobacco Use Types Packs/Day Years [...] or suspected to have Coronavirus / COVID-19? Yes 11/06/2021 11:17 AM LAMBSKIN TRIMMER documented as of this encounter Plan of Treatment Not on file documented as of this encounter Visit Diagnoses Not on filedocumented in this encounter Additional Health Concerns Infection Onset Date Last Indicated Resolved Time COVID-19 Rule Out 11/10/2024 11/10/2024 11/10/2024 2:43 PM LAMBSKIN TRIMMER documented as of this encounter Care Teams Contracting Executive Relationship Specialty Start Date End Date Renaldo Anaya MD [address] [address] PCP - General FAMILY PRACTICE 12/21/20 documented as of this encounter
--- OUTSIDE RECORDS SUMMARY | 2025-07-19 08:00 | XMS_ITS | Encounter Summary ---
Author Organization [facility] Address [address] [place] [address] Care Team Providers Care Real Estate Professor Name Role Phone Renaldo Anaya MD Primary Care Provider Encounter Details Date Type Department Care Team (Late st Contact Info) Description 03/05/2023 MyChart Message Enc [facility] Medical Group Family Medicine - [place] [address] [place] [address] Renaldo Anaya MD [address] [place], [place] [phone] From the cortisone shot today Social History Tobacco Use Types Packs/Day Years [...] Recorded In the last 10 days, have mahnaz u been in contact with someone who was confirmed or suspected to have Coronavirus/COVID-19? No / Unsure 03/05/2023 7:57 AM CDT documented as of this encounter Plan of Treatment Not on file documented as of this encounter Visit Diagnoses Not on filedocumented in this encounter Additional Health Concerns Infection Onset Date Last Indicated Resolved Time COVID-19 Rule Out 11/10/2024 11/10/2024 11/10/2024 2:43 PM ETCHER ENAMELING Assessment Noted Time PHQ-9 Depression Total Score: 19 023 8:06 AM CDT documented as of this encounter Care Teams Real Estate Professor Relationship Specialty Start Date End Date Renaldo Anaya MD [address] [address] PCP - General FAMILY PRACTICE 12/21/20 documented as of this encounter
--- OUTSIDE RECORDS SUMMARY | 2025-07-19 08:00 | XMS_ITS | Encounter Summary ---
Author Organization [facility] Address [address] [place] [address] Care Team Providers Care Safety Officer Name Role Phone Renaldo Anaya MD Primary Care Provider Encounter Details Date Type Department Care Team (Late st Contact Info) Description 01/19/2021 MyChart Message Enc [facility] Family Medicine - [place] [address] [place] [address] Renaldo Anaya MD [address] [place], [place] [phone] RE: Question Social History Tobacco Use Types [...] have Coronavirus / COVID-19? No / Unsure 01/18/2021 7:12 AM CDT documented as of this encounter Plan of Treatment Not on file documented as of this encounter Visit Diagnoses Not on filedocumented in this encounter Additional Health Concerns Infection Onset Date Last Indicated Resolved Time COVID-19 Rule Out 06/29/2021 06/29/2021 06/30/2021 2:36 PM CDT COVID-19 Rule Out 11/10/2024 11/10/2024 11/10/2024 2:43 PM EXECUTIVE CYBER LEADER documented as of this encounter Care Teams Safety Officer Relationship Specialty Start Date End Date Renaldo Anaya MD [address] [address] PCP - General FAMILY PRACTICE 12/21/20 documented as of this encounter
--- OUTSIDE RECORDS SUMMARY | 2025-07-19 08:00 | XMS_ITS | Encounter Summary ---
Author Organization [facility] Address [address] [place] [address] Care Team Providers Care Wrist Closer Name Role Phone Renaldo Anaya MD Primary Care Provider Encounter Details Date Type Department Care Team (Late st Contact Info) Description 02/09/2021 MyChart Message Enc [facility] Medical Group Family Medicine - [place] [address] [place] [address] Renaldo Anaya MD [address] [place], [place] [phone] RE: Follow Up/Update Social History Tobacco Use Types Packs/Day Years [...] Rule Out 11/10/2024 11/10/2024 11/10/2024 2:43 PM CIVIL STRUCTURAL DESIGNER documented as of this encounter Care Teams Wrist Closer Relationship Specialty Start Date End Date Renaldo Anaya MD [address] [address] PCP - General FAMILY PRACTICE 12/21/20 documented as of this encounter
--- OUTSIDE RECORDS SUMMARY | 2025-07-19 08:00 | XMS_ITS | Encounter Summary ---
Author Organization [facility] Address [address] [place] [address] Care Team Providers Care Bronc Breaker Name Role Phone Renaldo Anaya MD Primary Care Provider Encounter Details Date Type Department Care Team (Late st Contact Info) Description 12/22/2021 MyChart Message Enc [facility] Medical Group Family Medicine - [place] [address] [place] [address] Renaldo Anaya MD [address] [place], [place] [phone] Need a doctor s note Social History Tobacco Use Types Packs/Day Years [...] Rule Out 11/10/2024 11/10/2024 11/10/2024 2:43 PM DIRECTOR OF WOMEN'S SERVICES documented as of this encounter Care Teams Bronc Breaker Relationship Specialty Start Date End Date Renaldo Anaya MD [address] [address] PCP - General FAMILY PRACTICE 12/21/20 documented as of this encounter
--- OUTSIDE RECORDS SUMMARY | 2025-07-19 08:00 | XMS_ITS | Encounter Summary ---
Author Organization [facility] Address [address] [place] [address] Care Team Providers Care Diplomatic Officer Name Role Phone Renaldo Anaya MD Primary Care Provider Reason for Visit * Reason Onset Date Comments Problem 09/03/2022 Encounter Details Date Type Department Care Team (Late st Contact Info) Description 09/03/2022 MyChart Message Enc [facility] Medical Group Family Medicine - [place] [address] [place] [address] Renaldo Anaya MD [address] [place] [address] Menopause Social History Tobacco Use Types Packs/Day Years [...] AM CDT documented as of this encounter Progress Notes * Gilbert Myrick MA - 09/05/2022 9:17 AM CST My chart message sent to pt informing her of Dr. Anaya's message. Also left message. RUCTOR EXTENSION WORK * Linnea Osorio - 09/04/2022 12:06 PM CST Pt would like a call back. Cb# [phone] RUCTOR EXTENSION WORK documented in this encounter Plan of Treatment Not on file documented as of this encounter Visit Diagnoses Not on filedocumented in this encounter Additional Health Concerns Infection Onset Date Last Indicated Resolved Time COVID-19 Rule Out 11/10/2024 11/10/2024 11/10/2024 2:43 PM INSTRUCTOR EXTENSION WORK Assessment Noted Time PHQ-9 Depression Total Score: 19 022 7:31 AM CDT documented as of this encounter Care Teams Diplomatic Officer Relationship Specialty Start Date End Date Renaldo Anaya MD [address] [address] PCP - General FAMILY PRACTICE 12/21/20 documented as of this encounter
--- OUTSIDE RECORDS SUMMARY | 2025-07-19 08:00 | XMS_ITS | Encounter Summary ---
Author Organization [facility] Address [address] [place] [address] Care Team Providers Care Welfare Project Manager Name Role Phone Renaldo Anaya MD Primary Care Provider Encounter Details Date Type Department Care Team (Late st Contact Info) Description 09/14/2022 MyChart Message Enc [facility] Family Medicine - [place] [address] [place] [address] Renaldo Anaya MD [address] [place], [place] [id number] Question regarding LACERATION REPAIR Social History Tobacco Use Types Packs/Day Years [...] suspected to have Coronavirus/COVID-19? No / Unsure 09/14/2022 10:50 AM OFFICE SERVICES REPRESENTATIVE documented as of this encounter Plan of Treatment Not on file documented as of this encounter Visit Diagnoses Not on filedocumented in this encounter Additional Health Concerns Infection Onset Date Last Indicated Resolved Time COVID-19 Rule Out 11/10/2024 11/10/2024 11/10/2024 2:43 PM OFFICE SERVICES REPRESENTATIVE Assessment Noted Time PHQ-9 Depression Total Score: 19 022 7:31 AM CDT documented as of this encounter Care Teams Welfare Project Manager Relationship Specialty Start Date End Date Renaldo Anaya MD [address] [address] PCP - General FAMILY PRACTICE 12/21/20 documented as of this encounter
--- OUTSIDE RECORDS SUMMARY | 2025-07-19 08:02 | XMS_ITS | Patient Health Record ---
Author Organization [facility] ([address]) Address [address] [place] [address] Care Team Providers Care Quick Print Operator Name Role Phone Renaldo Anaya Primary Care Provider Unavailab Soraida Culver Unavailable [phone] Laure Zhong Unavailable [phone] Allergies No Known Allergies Reason For Referral Reason L50.9 Referring Provider First Name Renaldo Referring Provider Last Name [facility] Referred Organization [facility] Referred Provider Soraida Lange Referred Address [address],[place],[address],[place] Referred Provider Specialty Allergy/Immu nology Referral Priority Routine Medications Medication SIG (Take, Route, Frequency, Duration) Notes Start Date End Date Status Albuterol Sulfate HFA 108 (90 Base) MCG/ACT 2 puffs as needed Inhalation every 4 hrs; Duration: 30 days 11/30/2024 Active Azelastine HCl 137 MCG/SPRAY 2 spray(s) intranasally 2 times a day; Duration: 90 days Active PROAIR HFA 90 MCG/INH INHALE 2 PUFFS PO Q 4 H PRF SOB; Duration: 16 *Please review for potential replacement for e-prescription and drug interaction check* Active Melatonin 5 MG 1 tablet in the evening Orally Once a day Active Benadryl Allergy 25 MG 1 tablet at bedtime as needed Orally Once a day Active Famotidine 20 MG 1 tablet Orally Twice a day; Duration: 30 days Active Cetirizine HCl 10 MG 1 tablet Orally Twice a day; Duration: 30 days Active Immunizations Vaccine Route Administration Date Status Comme nts Influenza Unknown 07/28/2018 Administered Social History Tobacco Use: Social History Observation Description Date Details (start date - stop date) Never Smoker NA - NA Tobacco Control (Standard) Question Answer Notes Tobacco use: Nonsmoker Problems Problem Type SNOMED Code ICD Code Onset Dates Problem Status W/U Status Risk Notes Problem Chronic rhinitis (57373243) Chronic rhinitis (J31.0) Active confirmed Problem Uncomplicated mild persistent asthma (985750823) Mild persistent asthma, uncomplicated (J45.30) Active confirmed Problem Allergic rhinitis caused by pollen (disorder) (54276439) Allergic rhinitis due to pollen (J30.1) Active confirmed Problem Allergic rhinitis caused by animal hair and dander (666106237498638) Allergic rhinitis due to animal (cat) (dog) hair and dander (J30.81) Active confirmed Problem Allergic rhinitis (77082695) Other allergic rhinitis (J30.89) Active confirmed Problem Cough variant asthma (940909720) Cough variant asthma (J45.991) Active confirmed Problem Chronic allergic conjunctivitis (76038855) Other chronic allergic conjunctivitis (H10.45) Active confirmed Vital Signs Blood pressure diastolic 65 mm Hg 11/23/2024 Oximetry 99 % 11/23/2024 Height 69 in 11/23/2024 Blood pressure systolic 106 mm Hg 11/23/2024 Weight 219.6 lbs 11/23/2024 BMI 32.43 kg/m2 11/23/2024 Encounters Encounter Location Date Provider Diagnosis [facility] [address] [place] [address] 09/01/2024 Soraida Lange Angioneurotic edema, initial encounter T78.3XXA ; Idiopathic urticaria L50.1 ; Mild persistent asthma, uncomplicated J45.30 ; Allergic rhinitis due to pollen J30.1 ; Other allergic rhinitis J30.89 and Other chronic allergic conjunctivitis H10.[address] [address] 11/23/2024 Soraida Lange Idiopathic urticaria L50.1 ; Angioneurotic edema, subsequent encounter T78.3XXD ; Mild persistent asthma, uncomplicated J45.30 ; Allergic rhinitis due to pollen J30.1 ; Other allergic rhinitis J30.89 and Other chronic allergic conjunctivitis H10.45 [facility] [address] [place] [address] 08/28/2024 Soraida Lange [facility] [address] [place] [address] 11/30/2024 Soraida Lange Assessments Encounter Date Diagnosis (ICD Code) Assessment Notes Treatment Notes Treatment Clinical Notes Section Notes 09/01/2024 Angioneurotic edema, initial encounter (ICD-10 - T78.3XXA) 09/01/2024 Idiopathic urticaria (ICD-10 - L50.1) Considerations for hives include autoimmune, viral, stress, or idiopathic. Plan to order labwork for further evaluation. Continue treatment with Zyrtec 10 mg BID, Famotidine 40 mg BID. EpiPen to be available at all times. Follow-up in 1 month. A copy of today's consult was sent to the requesting physician. 11/23/2024 Idiopathic urticaria (ICD-10 - L50.1) Considerations for hives include autoimmune, viral, stress, or idiopathic. Recommend having labs drawn for further evaluation. Continue treatment with Zyrtec 10 mg BID and Famotidine. Recommend adding back medications individually over several weeks to see if change in hives. 11/23/2024 Angioneurotic edema, subsequent encounter (ICD-10 - T78.3XXD) 11/23/2024 Mild persistent asthma, uncomplicated (ICD-10 - J45.30) History of persistent asthma and required Arnuity in the past. Recommend continuing prn albuterol. She would like to wait on spirometry at this time becaues she has a URI. 09/01/2024 Mild persistent asthma, uncomplicated (ICD-10 - J45.30) History of persistent asthma and required Arnuity in the past. Recommend continuing prn albuterol. She would like to wait on spirometry at this time becaues she has a URI. 09/01/2024 Allergic rhinitis due to pollen (ICD-10 - J30.1) Javy clearly suffers from atopic disease based upon prior skin testing and clinical history. Accordingly, we have introduced a new, aggressive medication regimen, discussed nasal washes and allergy-specific avoidance measures. 11/23/2024 Allergic rhinitis due to pollen (ICD-10 - J30.1) Javy clearly suffers from atopic disease based upon prior skin testing and clinical history. Accordingly, we have introduced a new, aggressive medication regimen, discussed nasal washes and allergy-specific avoidance measures. 11/23/2024 Other allergic rhinitis (ICD-10 - J30.89) 09/01/2024 Other allergic rhinitis (ICD-10 - J30.89) 09/01/2024 Other chronic allergic conjunctivitis (ICD-10 - H10.45) Given ocular signs and symptoms I encouraged allergy avoidance measures and meds as above. If symptoms persist, consider adding additional medications including intraocular antihistamine/mast cell stabilizer, PRN 11/23/2024 Other chronic allergic conjunctivitis (ICD-10 - H10.45) Given ocular signs and symptoms I encouraged allergy avoidance measures and meds as above. If symptoms persist, consider adding additional medications including intraocular antihistamine/mast cell stabilizer, PRN 09/01/2024 Other 11/23/2024 Other Plan Of Treatment Pending Test Test Name Order Date -Immunoglobulin E, Total 09/01/2024 -CBC With Differential/Platelet 09/01/20 24 -Sedimentation Rate-Westergren 4 -F220 Cinnamon 09/01/2024 -CMP (14) 09/01/2024 TSH reflex to T4F 09/01/2024 Insurance Providers Payer Name Payer Address Payer Phone Subscriber Number Group Number Insured Name Patient Relationship to Insured Coverage Start Date Coverage End Date [facility] [address] [address] [place] [id number] Javy Fields Self - patient is the insured 4 Medical (General) History Medical History History ICD Code Vasovagal reactions Sicca syndrome, unspecified M35.00 Surgical History Surgery Date(Month/Year) Pacemaker 2000,2009 Tonsillectomy 1986 Trosper teeth 2003 Function Endoscopic surgery 2007,2017 Salpingectomy 1994 Leep 1994,1995,1997 Hysterectomy 2004 uterine fibroids 1994
--- OUTSIDE RECORDS SUMMARY | 2025-07-19 08:02 | XMS_ITS | Clinical Summary ---
Author Organization [facility] Address [address] [place] [address] Care Team Providers Care Movie Producer Name Role Phone Renaldo Anaya MD Primary Care Provider Allergies Active Allergy Reactions Criticality Noted Date Comments Ragweed Runny Nose 12/17/2023 Medications Multiple Vitamins-Mineral s (DAILY MULTI VITAMIN/MINERALS OR) Take 1 tablet by mouth daily. 06/04/2013 Active albuterol sulfate HFA 108 (90 Base) MCG/ACT inhaler Inhale 2 puffs into the lungs as needed. 11/20/2020 Active cetirizine (ZYRTEC) 10 MG tabletIndication s:Hives Take 2 tablets (20 mg total) by mouth before breakfast. 60 tablet 1 07/28/2024 Active diphenhydrAMINE (BENADRYL) 25 MG tabletIndication s:Hives Take 2 tablets (50 mg total) by mouth nightly as needed for Itching. 60 tablet 1 07/28/2024 Active famotidine (PEPCID) 20 MG tabletIndication s:Hives Take 1 tablet (20 mg total) by mouth 2 (two) times daily. 60 tablet 1 07/28/2024 Active topiramate (TOPAMAX) 100 MG tabletIndication s:Class 1 obesity due to excess calories without serious comorbidity with body mass index (BMI) of 32.0 to 32.9 in adult Take 1 tablet (100 mg total) by mouth daily. 90 tablet 3 02/26/2025 Active DULoxetine (CYMBALTA) 30 MG capsuleIndicatio ns:Hot flashes due to menopause Take 1 capsule (30 mg total) by mouth daily. 30 capsule 3 02/26/2025 Active Active Problems Problem Noted Date Diagnosed Date Acquired hypothyroidism 12/12/2023 Pure hypercholesterolemia 12/12/2023 Stage 2 chronic kidney disease 12/12/2023 Lymphedema of both lower extremities 12/12/2023 Hot flashes due to menopause 06/03/2023 Non-recurrent acute serous otitis media of right ear 05/08/2023 PVCs (premature ventricular contractions) 2022 Situational mixed anxiety and depressive disorde r 01/10/2022 COVID-19 virus infection 11/06/2021 Renal insufficiency 01/18/2021 Class 1 obesity due to exces s calories without serious comorbidity with body mass index (BMI) of 32.0 to 32.9 in adult 12/21/2020 Atrial arrhythmia 04/29/2019 Non-seasonal allergic rhinitis 07/25/2018 Raynaud's syndrome without gangrene 07/25/2018 Mild persistent asthma without complication ([facility] /HCC) 07/25/2018 Presence of cardiac pacemaker 08/12/2017 Recurrent genital HSV (herpes simplex virus) inf ection 11/28/2015 Sjogren-Viky syndrome ([facility]/HCC) 04/11/2015 Resolved Problems Problem Noted Date Diagnosed Date Resolved Date Impingement syndrome of right shoulder 08/10/2021 08/09/2022 Dysthymia 05/24/2021 06/15/2024 Diarrhea, unspecified type 01/18/2021 0 05/24/2021 Asthma ([facility]/HCC) 02/03/2018 11/07/2022 Fear of flying 05/01/2016 12/12/2023 GERD (gastroesophageal reflux disease) 11/18/2015 11/07/2022 Primary insomnia 04/11/2015 06/15/2024 Encounter for preventive health examination 04/08/2015 12/26/2020 Encounters Date Type Department Care Team Description 06/16/2025 Telephone [facility] Family Medicine - [place] [address], [address] [place] [address] Renaldo Anaya MD Problem from Last 3 Months Immunizations Immunization Administration Dates Next Due Tdap (Adacel) 09/14/2022 Family History Medical History Relation Comments Arthritis Father Hands shoulders knees COPD Father Copd Cancer Father Lung Depression Father Diabetes Father Heart Father Heart Disease Father Hypertension Father Lung Cancer Father Heart Maternal Grandfather Cancer Maternal Grandmother Uterine Cancer Maternal Uncle Lung Arthritis Mother Hands knees Asthma Mother Cancer Mother Pancreatic Depression Mother Heart Mother Heart Disease Mother Hypertension Mother Cancer Paternal Aunt Breast Cancer Paternal Grandfather Esophoreica l Arthritis Paternal Grandmother Diabetes Paternal Grandmother Heart Disease Paternal Grandmother Hypertension Paternal Grandmother Cancer Paternal Uncle 1 Esphogecial Cancer Paternal Uncle 2 Thyroid Cancer Paternal Uncle 3 Bladder Heart Sister 1 MVP Sister 1 Arthritis Sister 2 Hands knees Asthma Sister 2 Relation Status Comments Father Maternal Grandfather Maternal Grandmother Maternal Uncle Mother Paternal Aunt Paternal Grandfather Paternal Grandmother Paternal Uncle 1 Paternal Uncle 2 Paternal Uncle 3 Sister 1 Sister 2 Social History Tobacco Use Types Packs/Day Years Used Date Smoking Tobacco: Never Passive Smoke Exposure: Never Smokeless Tobacco: Never Tobacco Cessation:Counseling Given: No Comments:Physician will discuss if necessary Alcohol Use Standard Drinks/Week Comments Not Currently 0 (1 standard drink = 0.6 oz pure alcohol) Alcohol is maybe 1 drink rvery 2-3 months. It messed with my PHQ-2 Answer Date Recorded Patient Health Questionnaire-2 Score 0 02/26/2025 Comments No Sex and Gender Information Value Date Recorded Sex Assigned at Female 02/26/2025 8:59 AM CDT Legal Sex Female 10:38 PM CDT Gender Identity Female 02/26/2025 8:59 AM CDT Sexual Orientation Straight 02/26/2025 8: 59 AM CDT Last Filed Vital Signs Vital Sign Reading Time Taken Comments Blood Pressure 134/78 02/26/2025 9:00 AM CDT Pulse 78 02/26/2025 9:00 AM CDT Temperature 36.6 C (97.8 F) 02/26/2025 9:00 AM CDT Respiratory Rate 21 02/26/2025 9:00 AM CDT Oxygen Saturation 99% 02/26/2025 9:00 AM CDT Inhaled Oxygen Concentration - - Weight 101.9 kg (224 lb 9.6 oz) 02/26/2025 9:00 AM CDT Height 174 cm (5' 8.5) 01/27/2025 1:50 PM CDT Body Mass Index 33.65 01/27/2025 1:50 PM CDT Plan of Treatment Health Maintenance Due Date Last Done Comments Colorectal Cancer Screening Colonoscopy (10 Years) 1975 Hepatitis C 1993 Hepatitis B Vaccines (1 of 3 - 19+ 3-dose series) 1994 Pneumococcal Vaccine: Pediatrics (0 to 5 Years) and At-Risk Patients (6 to 49 Years) (1 of 2 - PCV) 1994 Annual Physical 12/12/2024 12/12/2023, 11/07/2022 COVID-19 Vaccine (1 - 2023-2 5 season) 2025 Mammogram Screening 09/17/2025 09/17/2023, 08/07/2023 DTaP, Tdap and Td Vaccines ( 2 - Td or Tdap) 09/14/2032 09/14/2022 PHQ-2 ([facility]) Completed 02/26/2025 Meningococcal B Vaccine Aged Out No l onger eligible based on patient's age to complete this topic Meningococcal Vaccine Aged Out No gareth leah eligible based on patient's age to complete this topic RSV Immunizations Under 20 Months Aged Out No longer eligible b ased on patient's age to complete this topic Procedures Procedure Name Priority Date/Time Associated Diagnosis Comments MG DIAG W MARGARET LT DIGI Routine 09/17/2023 2:54 PM BOTTLE CLEANER Abnormal mammogram from Last 3 Months or Most Recently Relevant to Health Maintenance Results * MG DIAG W MARGARET LT DIGI (09/17/2023 2:54 PM BOTTLE CLEANER) Anatomical Region Laterality Modality Breast Left Mammography 09/17/2023 3:02 PM BOTTLE CLEANER Narrative 09/17/2023 3:03 PM BOTTLE CLEANER Examination: Digital left diagnostic mammogram with 3-D tomography Exam Date/Time: 09/17/2023 2:24 PM Reason For Exam: abnormal mammogram Calcification seen on screening exam with further evaluation recommended Comparison: Screening mammogram from outside facility 08/07/2023 Technique: Digital diagnostic mammography of the left breast was performed in addition to 3-D Tomosynthesis technique. This study was read with the assistance of a computer-aided detection system. Tissue density: The breast tissue is heterogeneously dense, which may obscure small masses. Findings:Multiple areas of calcification seen in the left breast. Spot magnification views are taken of multiple areas. On magnification views there are no malignant features appreciated. Typically benign punctate and rounded morphology is are demonstrated. Overall parenchymal pattern of the left breast stable from the comparison exam. Benign axillary lymph nodes again seen. ===== IMPRESSION: ===== 1. No findings in the left breast to suggest malignancy Assessment: ACR BI-RADS 2 - BENIGN FINDING(S) Recommendation: 1:Routine Screening Bilateral Comments: Ordered By: RENALDO ANAYA Interpreted By: Oracio Aguayo MD, 09/17/2023 3:02 PM Renaldo Anaya MD MAMMO Final R esult from Last 3 Months or Most Recently Relevant to Health Maintenance Insurance Care Teams Movie Producer Relationship Specialty Start Date End Date Renaldo Anaya MD [address] [place] [address] PCP - General FAMILY PRACTICE 12/21/20
[2025-07-19 08:13] LABS: Hematocrit 42.0 % (37.0-47.0); Hemoglobin 13.6 g/dL (12.0-15.0); Immature Granulocyte Percent A 0.4 % (0-0.5); Lymphocytes Absolute Auto 2.11 K/mm3 (0.9-3.2); Mean Corpuscular HGB Conc 32.4 g/dl (32-36); Mean Corpuscular Hemoglobin 27.3 pg (26-34); Mean Corpuscular Volume 84.3 fl (80-100); Nucleated Red Blood Cells Absolute Auto 0.000 K/mm3 (0.0-0.012); Nucleated Red Blood Cells Perc 0.0 % (0.0-0.2); Platelet Count Result 246 k/mm3 (150-375); Red Blood Count 4.98 M/mm3 (4.2-5.4); White Blood Count 5.0 K/mm3 (4.5-10.0)
[2025-07-19 08:32] LABS: Alanine Aminotransferase 16 U/L (6-35); Albumin Level 4.1 g/dL (3.5-5.1); Alkaline Phosphatase 102 U/L (38-126); Anion Gap 10 mmol/L (4-12); Aspartate Amino Transferase 22 U/L (14-36); Bilirubin,Total 0.4 mg/dL (0.2-1.3); Blood Urea Nitrogen 19 mg/dL (7-17); Calcium 8.8 mg/dL (8.4-10.2); Carbon Dioxide 22 mmol/L (22-30); Chloride 102 mmol/L (98-107); Estimated Glomerular Filt Rate 55; Glucose 94 mg/dL (65-110); Potassium 3.9 mmol/L (3.4-5.0); Sodium 134 mmol/L (137-145); Total Protein 7.0 g/dL (6.3-8.2)
[2025-07-19 09:10] LABS: Thyroid Stimulating Hormone 4.850 uIU/mL (0.465-4.680)
[2025-07-19 10:57] LABS: Hemoglobin A1C 5.3 % (<5.7)
[2025-07-19 11:40] LABS: Free T3 3.93 pg/mL (2.71-6.16); Free T4 Free Thyroxine 1.03 ng/dL (0.78-2.19)
[2025-07-20 12:08] LABS: FSH 92.2 mIU/mL (.)
== END 2025-07-19 07:43 | disposition home or self-care (01) ==
LOC: ANHIMG 07:43
PROVIDERS: PCP Nurse Practitioner Family; Visit Provider Nurse Practitioner Family
DX: R55 Syncope and collapse (principal); E04.1 Nontoxic single thyroid nodule; M35.00 Sjogren syndrome, unspecified; J44.9 Chronic obstructive pulmonary disease, unspecified; Z76.89 Persons encountering health services in other specified circumstances; Z00.00 Encounter for general adult medical examination without abnormal findings
CPT/HCPCS: 36415; 76536; 80053; 83001; 83036; 84144; 84439; 84443; 84481; 85025; 86376

== ENCOUNTER 2025-10-13 08:06 | Emergency (ER) | payer OTHER, SELFPAY ==
--- OUTSIDE RECORDS SUMMARY | 2024-10-06 11:30 | XMS_ITS ---
Author Organization [facility] [place] ([address]) Address [address] [place] [address] Care Team Providers Care Technology Strategist Name Role Phone Renaldo Anaya Primary Care Provider Unavailab Soraida Culver Unavailable [phone] REASON FOR VISIT [facility] follow-up Encounters Encounter Location Date Provider Diagnosis [facility] [address] [place] [address] 10/06/2024 Soraida Lange Plan Of Treatment No Information Progress Notes * Miguel Angel WEIRB: 5 (49 yo F)Acc No.[id number]:10/06/2024 Progress Notes Patient: Javy TRUJILLO Provider: Ivan Lange MD :1975 A ge:48 Y S ex:Female Date:10/06/2024 Address:[address] [place], [id number] Pcp:Renaldo Anaya Subjective: * Chief Complaints: * 1 . [facility]C follow-up. * Medical History: Objective: * Vitals: Assessment: Plan: * Treatment: * Billing Information: * Visit Code: * Procedure Codes: * Electronic signature of Clarice Lange MD on 10/13/2025 at 08:18 AM SPRAYER AUTOMATIC SPRAY MACHINE Sign off status: Pending * Provider: Ivan Lange MD Date: 1 12/07/2023 Generated for Lou marin/Kamron/Luiza on: 1 12/14/2024 08:18 AM SPRAYER AUTOMATIC SPRAY MACHINE
--- OUTSIDE RECORDS SUMMARY | 2024-11-12 11:30 | XMS_ITS ---
Author Organization [facility] [place] ([address]) Address [address] [place] [address] Care Team Providers Care Family Assessment Worker Name Role Phone Renaldo Anaya Primary Care Provider Unavailab Soraida Culver Unavailable [phone] Laure Zhong Unavailable [phone] REASON FOR VISIT [facility] follow-up Encounters Encounter Location Date Provider Diagnosis [address] [address] 11/12/2024 Laure Zhong Plan Of Treatment No Information Progress Notes * Kyle WEIRaDOB: 5 (49 yo F)Acc No.[id number]:11/12/2024 Progress Notes Patient: Javy TRUJILLO Provider: JERRELL Johnson :1975 A ge:49 Y S ex:Female Date:11/12/2024 [address] [facility] Pcp:Renaldo Anaya Subjective: * Chief Complaints: * 1 . ARC follow-up. * Medical History: Objective: * Vitals: Assessment: Plan: * Treatment: * Billing Information: * Visit Code: * Procedure Codes: * Electronic signature of Laure Zhong DNP, FNP-C on 10/13/2025 at 08:16 AM TRANSPORTATION ASSISTANT Sign off status: Pending * Provider: Jose Manuel Zhong DNP MASTER COOK-C Date: 0 11/12/2024 Generated for Lou Ferguson/Luiza on: 1 12/14/2024 08:16 AM TRANSPORTATION ASSISTANT
[2025-10-13 08:16] VITALS: BP 111/82; PULSE 81; RESP 18; TEMP 36.6; O2SAT 98
--- OUTSIDE RECORDS SUMMARY | 2025-10-13 08:16 | XMS_ITS | Encounter Summary ---
Author Organization [facility] Address [address] [place] [address] Care Team Providers Care Youth Program Director Name Role Phone Renaldo Anaya MD Primary Care Provider Encounter Details Date Type Department Care Team (Late st Contact Info) Description 05/21/2024 MyChart Message Enc [facility] Family Medicine - [place] [address] [place] [address] Renaldo Anaya MD [address] [place], [place] [id number] Stye on my eyelid? Social History Tobacco [...] Rule Out 11/10/2024 11/10/2024 11/10/2024 2:43 PM BUILDING CODE ADMINISTRATOR Assessment Noted Time PHQ-9 Depression Total Score: 19 023 8:06 AM CDT documented as of this encounter Care Teams Youth Program Director Relationship Specialty Start Date End Date Renaldo Anaya MD [address] [place] [address] PCP - General FAMILY PRACTICE 12/21/20 documented as of this encounter
--- OUTSIDE RECORDS SUMMARY | 2025-10-13 08:16 | XMS_ITS | Encounter Summary ---
Author Organization [facility] Care Team Providers Care Cabin Man Name Role Phone Renaldo Anaya MD Primary Care Provider [phone] Encounter Details Date Type Department Care Team (Latest Contact Info) Description 10/16/2018 Orders Only [facility]INCON[facility] ProviderMary MD [address] [place] [address] Social History Tobacco Use Types Packs/Day Years Used Date Smoking Tobacco: Never Assessed Comments Unknown Sex and Gender Information Value Date Recorded Sex Assigned at Not on file Legal Sex Female 7:11 PM WIRE COATING OPERATOR METAL Gender Identity Not on file Sexual Orientation Not on file documented as of this encounter Plan of Treatment Not on file documented as of this encounter Procedures Procedure Name Priority Date/Time Associated Diagnosis Comments SCAN - LABS 09/24/2018 12:00 AM WIRE COATING OPERATOR METAL SCAN - LABS 09/24/2018 12:00 AM WIRE COATING OPERATOR METAL SCAN - LABS 09/24/2018 12:00 AM WIRE COATING OPERATOR METAL SCAN - LABS 09/24/2018 12:00 AM WIRE COATING OPERATOR METAL SCAN - LABS 09/24/2018 12:00 AM WIRE COATING OPERATOR METAL documented in this encounter Results * SCAN - LABS (09/24/2018 12:00 AM WIRE COATING OPERATOR METAL) Narrative 09/24/2018 12:00 AM WIRE COATING OPERATOR METAL Ordered by an unspecified provider. us Historical Provider MD Final Res ult * SCAN - LABS (09/24/2018 12:00 AM WIRE COATING OPERATOR METAL) Narrative 09/24/2018 12:00 AM WIRE COATING OPERATOR METAL Ordered by an unspecified provider. Historical Provider MD Final Res ult * SCAN - LABS (09/24/2018 12:00 AM WIRE COATING OPERATOR METAL) Narrative 09/24/2018 12:00 AM WIRE COATING OPERATOR METAL Ordered by an unspecified provider. [facility] Provider MD Final Res ult * SCAN - LABS (09/24/2018 12:00 AM WIRE COATING OPERATOR METAL) Narrative 09/24/2018 12:00 AM WIRE COATING OPERATOR METAL Ordered by an unspecified provider. [facility] Provider MD Final Res ult * SCAN - LABS (09/24/2018 12:00 AM WIRE COATING OPERATOR METAL) Narrative 09/24/2018 12:00 AM WIRE COATING OPERATOR METAL Ordered by an unspecified provider. [facility] Provider Final Res ult documented in this encounter Visit Diagnoses Not on filedocumented in this encounter Care Teams Cabin Man Relationship Specialty Start Date End Date Renaldo Anaya MD [address] [address] PCP - General Family Medicine 09/04/21 documented as of this encounter
--- OUTSIDE RECORDS SUMMARY | 2025-10-13 08:16 | XMS_ITS | Encounter Summary ---
Author Organization [facility] Address [address] [place] [address] Care Team Providers Care Bean Picker Machine Operator Name Role Phone Renaldo Anaya MD Primary Care Provider Encounter Details Date Type Department Care Team (Late st Contact Info) Description 02/25/2025 MyChart Message Enc [facility] Medical Group Family Medicine - [place] [address], [address] [place] [address] Renaldo Anaya MD [address] [place], [place] [phone] Recurring nose bleeds and fainting feeling Social History Tobacco Use Types Packs/Day Years [...] pleasure in doing things Not at all 02/26/2025 9:00 AM CDT Marlene Modi MA Active Feeling down, depressed, or hopeless Not at all 02/26/2025 9:00 AM CDT Marlene Modi MA Activ e Patient Health Questionnaire-2 Score 0 02/26/2025 9:00 AM CDT Marlene Modi MA Active * If you checked off any problems on this questionnaire so far, Question Answer Date of Assessment Author Status How difficult have these problems made it for you to do your work, take care of things at home, or get along with other people? Not difficult at all 02/26/2025 9:00 AM CDT Marlene Modi MA Active documented as of this encounter Plan of Treatment Not on file documented as of this encounter Visit Diagnoses Not on filedocumented in this encounter Additional Health Concerns Assessment Noted Time PHQ-9 Depression Total Score: 19 01/21/ 023 8:06 AM CDT documented as of this encounter Care Teams Bean Picker Machine Operator Relationship Specialty Start Date End Date Renaldo Anaya MD [address] [place] [address] PCP - General FAMILY PRACTICE 12/21/20 documented as of this encounter
--- OUTSIDE RECORDS SUMMARY | 2025-10-13 08:16 | XMS_ITS | Encounter Summary ---
Author Organization [facility] Address [address] [place] [address] Care Team Providers Care Nuclear Medicine Medical Director Name Role Phone Renaldo Anaya MD Primary Care Provider Encounter Details Date Type Department Care Team (Late st Contact Info) Description 04/24/2023 Trendytat Message Enc [facility] Medical [facility] - [facility] [address] [place], [place] [address] [facility], [facility] Provider Air Quality Message Social History Tobacco [...] Rule Out 11/10/2024 11/10/2024 11/10/2024 2:43 PM UTILITY WORKER Assessment Noted Time PHQ-9 Depression Total Score: 19 023 8:06 AM CDT documented as of this encounter Care Teams Nuclear Medicine Medical Director Relationship Specialty Start Date End Date Renaldo Anaya MD [address] [address] PCP - General FAMILY PRACTICE 12/21/20 documented as of this encounter
--- OUTSIDE RECORDS SUMMARY | 2025-10-13 08:16 | XMS_ITS | Encounter Summary ---
Author Organization [facility] Address [address] [place] [address] Care Team Providers Care 3D Animator Name Role Phone Renaldo Anaya MD Primary Care Provider Encounter Details Date Type Department Care Team (Late st Contact Info) Description 09/14/2022 MyChart Message Enc [facility] Medical Group Family Medicine - [place] [address] [place] [address] Renaldo Anaya MD [address] [facility] [address] [place], [place] [phone] Question regarding LACERATION REPAIR Social History Tobacco [...] Coronavirus/COVID-19? No / Unsure 09/14/2022 10:50 AM SOLID GLASS ROD DOWEL MACHINE OPERATOR documented as of this encounter Plan of Treatment Not on file documented as of this encounter Visit Diagnoses Not on filedocumented in this encounter Additional Health Concerns Infection Onset Date Last Indicated Resolved Time COVID-19 Rule Out 11/10/2024 11/10/2024 11/10/2024 2:43 PM SOLID GLASS ROD DOWEL MACHINE OPERATOR Assessment Noted Time PHQ-9 Depression Total Score: 19 022 7:31 AM CDT documented as of this encounter Care Teams 3D Animator Relationship Specialty Start Date End Date Renaldo Anaya MD [address] [address] PCP - General FAMILY PRACTICE 12/21/20 documented as of this encounter
--- OUTSIDE RECORDS SUMMARY | 2025-10-13 08:16 | XMS_ITS | Encounter Summary ---
Author Organization [facility] Address [address] [place] [address] Care Team Providers Care Chemical Production Technician Name Role Phone Renaldo Anaya MD Primary Care Provider Encounter Details Date Type Department Care Team (Late st Contact Info) Description 03/05/2023 MyChart Message Enc [facility] Medical Group Family Medicine - [place] [address] [place] [address] Renaldo Anaya MD [address] [place], [place] [phone] From the cortisone shot today Social History [...] Rule Out 11/10/2024 11/10/2024 11/10/2024 2:43 PM OUTBOARD MOTOR MECHANIC Assessment Noted Time PHQ-9 Depression Total Score: 19 023 8:06 AM CDT documented as of this encounter Care Teams Chemical Production Technician Relationship Specialty Start Date End Date Renaldo Anaya MD [address] [address] PCP - General FAMILY PRACTICE 12/21/20 documented as of this encounter
--- OUTSIDE RECORDS SUMMARY | 2025-10-13 08:16 | XMS_ITS | Encounter Summary ---
Author Organization [facility] Address [address] [place] [address] Care Team Providers Care Net Front End Developer Name Role Phone Renaldo Anaya MD Primary Care Provider Encounter Details Date Type Department Care Team (Late st Contact Info) Description 01/01/2024 MyChart Message Enc [facility] Medical Group Family Medicine - [place] [address], [address] [place] [address] Renaldo Anaya MD [address] [place], [place] [phone] Heavy Metal hair test Social History Tobacco [...] Rule Out 11/10/2024 11/10/2024 11/10/2024 2:43 PM INFORMATICS SPECIALIST Assessment Noted Time PHQ-9 Depression Total Score: 19 023 8:06 AM CDT documented as of this encounter Care Teams Net Front End Developer Relationship Specialty Start Date End Date Renaldo Anaya MD [address] [address] PCP - General FAMILY PRACTICE 12/21/20 documented as of this encounter
--- OUTSIDE RECORDS SUMMARY | 2025-10-13 08:16 | XMS_ITS | Encounter Summary ---
Author Organization [facility] Address [address] [place] [address] Care Team Providers Care Fishing Tool Operator Name Role Phone Renaldo Anaya MD Primary Care Provider Encounter Details Date Type Department Care Team (Late st Contact Info) Description 12/12/2023 MyChart Message Enc [facility] Medical Group Family Medicine - [place] [address] [place] [address] Renaldo Anaya MD [address] [place], [place] [phone] Not a question but a drop of [...] things Not at all 12/12/2023 8:27 AM SAMPLE STEAMER Gilbert Myrick , Nurse Nuclear Powerplant Mechanic Helper I Active Feeling down, depressed, or hopeless Not at all 12/12/2023 8:27 AM SAMPLE STEAMER Lang Myrick, Nurse Nuclear Powerplant Mechanic Helper I Active Patient Health Questionnaire-2 Score 0 12/12/2023 8:27 AM SAMPLE STEAMER Gilbert Myrick, Nurse Nuclear Powerplant Mechanic Helper I Active documented as of this encounter Plan of Treatment Not on file documented as of this encounter Visit Diagnoses Not on filedocumented in this encounter Additional Health Concerns Infection Onset Date Last Indicated Resolved Time COVID-19 Rule Out 11/10/2024 11/10/2024 11/10/2024 2:43 PM SAMPLE STEAMER Assessment Noted Time PHQ-9 Depression Total Score: 19 023 8:06 AM CDT documented as of this encounter Care Teams Fishing Tool Operator Relationship Specialty Start Date End Date Renaldo Anaya MD [address] [place] [address] PCP - General FAMILY PRACTICE 12/21/20 documented as of this encounter
--- OUTSIDE RECORDS SUMMARY | 2025-10-13 08:17 | XMS_ITS | Encounter Summary ---
Author Organization [facility] Address [address] [place] [address] Care Team Providers Care Thread Spooler Name Role Phone Renaldo Anaya MD Primary Care Provider Encounter Details Date Type Department Care Team (Late st Contact Info) Description 11/27/2022 Viva la Vitat Message Enc [facility] Medical Group Family Medicine - [place] [address] [place] [address] Renaldo Anaya MD [address] [place], [place] [phone] Biometrics results pics in message Social History [...] Coronavirus/COVID-19? No / Unsure 11/07/2022 10:09 AM TONGUE BINDER documented as of this encounter Progress Notes * Gilbert Myrick MA - 11/27/2022 9:22 AM CSTFrom: Javy Fields To: Dr. Renaldo Anaya Sent: 11/27/2022 8:26 AM TONGUE BINDER Subject: Biometrics results pics in message Here are my ???s and my results. I???m on his hippa. He???s also a patient. I know a few numbers are high on both of ours. We are gonna change some things and coquille back on 6 months and see if the number drop before we take meds. Very disappointed in ourselves. That parental disappointment.Lol . UE BINDER documented in this encounter Plan of Treatment Not on file documented as of this encounter Visit Diagnoses Not on filedocumented in this encounter Additional Health Concerns Infection Onset Date Last Indicated Resolved Time COVID-19 Rule Out 11/10/2024 11/10/2024 11/10/2024 2:43 PM TONGUE BINDER Assessment Noted Time PHQ-9 Depression Total Score: 19 022 7:31 AM CDT documented as of this encounter Care Teams Thread Spooler Relationship Specialty Start Date End Date Renaldo Anaya MD [address] [facility] [address] [place] [address] PCP - General FAMILY PRACTICE 12/21/20 documented as of this encounter
--- OUTSIDE RECORDS SUMMARY | 2025-10-13 08:17 | XMS_ITS | Encounter Summary ---
Author Organization [facility] Address [address] [place] [address] Care Team Providers Care Analytics Associate Name Role Phone Renaldo Anaya MD Primary Care Provider Encounter Details Date Type Department Care Team (Late st Contact Info) Description 06/18/2022 MyChart Message Enc [facility] Family Medicine - [place] [address] [place] [address] Renaldo Anaya MD [address] [place], [place] [phone] Finally have therapist appt. But ??? Social [...] Rule Out 11/10/2024 11/10/2024 11/10/2024 2:43 PM HALL TENDER Assessment Noted Time PHQ-9 Depression Total Score: 0 01/11/20 8:16 AM CDT documented as of this encounter Care Teams Analytics Associate Relationship Specialty Start Date End Date Renaldo Anaya MD [address] [place] [address] PCP - General FAMILY PRACTICE 12/21/20 documented as of this encounter
--- OUTSIDE RECORDS SUMMARY | 2025-10-13 08:17 | XMS_ITS | Clinical Summary ---
Author Organization [address] Address [address] [place] [id number] Care Team Providers Care Invoice Machine Operator Name Role Phone Renaldo Anaya MD Primary Care Provider [phone]- [phone] Allergies Active Allergy Reactions Criticality Noted Date Comments Penrose Smut Allergenic Extract Rhinitis Low 022 Pollen [...] 04/11/2015 Assessment & Plan (11/12/2023 3:43 PM LAMINA SEARCHER): Patient continue to use Lunesta 3 mg [...] sleeping. Assessment & Plan (11/28/2021 2:52 PM LAMINA SEARCHER): The patient has battled insomnia her entire life. I will refill her Lunesta to use 1.5-3 mg at bedtime in addition to melatonin 5 mg at bedtime. We had a long discussion regarding cognitive behavioral therapy for insomnia. I also discussed sleep restriction and good sleep hygiene. I have given her the 2 brochures that are published by the [place] [employer]. She will follow-up [...] on file Legal Sex Female 7:11 PM LAMINA SEARCHER Gender Identity Not on file Sexual Orientation Not on file Last Filed Vital Signs Vital Sign Reading Time Taken Comments Blood Pressure 106/60 11/12/2023 3:28 PM LAMINA SEARCHER Pulse 90 11/12/2023 3:28 PM LAMINA SEARCHER Temperature 36.3 C (97.4 F) 11/12/2023 3:28 PM LAMINA SEARCHER Respiratory Rate 18 11/12/2023 3:28 PM LAMINA SEARCHER Oxygen Saturation 97% 11/12/2023 3:28 PM LAMINA SEARCHER Inhaled Oxygen Concentration - - Weight 90.3 kg (199 lb) 11/12/2023 3:28 PM LAMINA SEARCHER Height 175.3 cm (5' 9) 11/12/2023 3:28 PM LAMINA SEARCHER Body Mass Index 29.39 11/12/2023 3:28 PM LAMINA SEARCHER Plan of Treatment Health Maintenance Due Date Last Done Comments Breast Cancer Screening-Mammogram 1975 Colon Cancer Screening-Colonoscopy 1975 Depression Screening 1975 Hepatitis C Screening 1975 Hepatitis B Screening 1993 Regular Well Visit/Exam 18-64 1993 Pneumococcal vaccine <65 (1 of 2 - PCV) 1994 Influenza Vaccine (#1) 2025 DTaP/Tdap/Td Vaccine (2 - Td or Tdap) 09/14/2032 Insurance [facility] ACC[facility] CHOICE PLUS [facility] H[facility]/PPO Address: [facility] [address] [place] [address] [facility] Care Teams Invoice Machine Operator Relationship Specialty Start Date End Date Renaldo Anaya MD [address] [facility] [address] [place] [address] PCP - General Family Medicine 09/04/21
--- OUTSIDE RECORDS SUMMARY | 2025-10-13 08:18 | XMS_ITS | Encounter Summary ---
Author Organization [facility] Address [address] [place] [address] Care Team Providers Care Forestry Instructor Name Role Phone Renaldo Anaya MD Primary Care Provider Encounter Details Date Type Department Care Team (Late st Contact Info) Description 09/05/2022 Scoreoid Message Enc [facility] Medical Group Family Medicine - [place] [address] [place] [address] [facility] Response Social History Tobacco Use Types [...] Rule Out 11/10/2024 11/10/2024 11/10/2024 2:43 PM MECHANICAL DRAWING TEACHER Assessment Noted Time PHQ-9 Depression Total Score: 19 022 7:31 AM CDT documented as of this encounter Care Teams Forestry Instructor Relationship Specialty Start Date End Date Renaldo Anaya MD [address] [address] PCP - General FAMILY PRACTICE 12/21/20 documented as of this encounter
--- OUTSIDE RECORDS SUMMARY | 2025-10-13 08:18 | XMS_ITS | Encounter Summary ---
Author Organization [facility] Address [address] [place] [address] Care Team Providers Care Freezer Operator Name Role Phone Renaldo Anaya MD Primary Care Provider Encounter Details Date Type Department Care Team (Late st Contact Info) Description 02/09/2021 MyChart Message Enc [facility] Medical Group Family Medicine - [place] [address] [place] [address] Renaldo Anaya MD [address] [place], [place] [phone] RE: Follow Up/Update Social History Tobacco Use [...] Rule Out 11/10/2024 11/10/2024 11/10/2024 2:43 PM SALES FLOOR MANAGER documented as of this encounter Care Teams Freezer Operator Relationship Specialty Start Date End Date Renaldo Anaya MD [address] [address] PCP - General FAMILY PRACTICE 12/21/20 documented as of this encounter
--- OUTSIDE RECORDS SUMMARY | 2025-10-13 08:18 | XMS_ITS | Encounter Summary ---
Author Organization [facility] Address [address] [place] [address] Care Team Providers Care Machine Repair Person Name Role Phone Renaldo Anaya MD Primary Care Provider Reason for Visit * Reason Onset Date Comments Problem 09/03/2022 Encounter Details Date Type Department Care Team (Late st Contact Info) Description 09/03/2022 MyChart Message Enc [facility] Medical Group Family Medicine - [place] [address], [address] [place] [address] Renaldo Anaya MD [address] [place] [address] Menopause Social History Tobacco Use [...] of Dr. Anaya's message. Also left message. RAGUS BUNCHER * Linnea Osorio - 09/04/2022 12:06 PM CST Pt would like a call back. Cb# [phone] RAGUS BUNCHER documented in this encounter Plan of Treatment Not on file documented as of this encounter Visit Diagnoses Not on filedocumented in this encounter Additional Health Concerns Infection Onset Date Last Indicated Resolved Time COVID-19 Rule Out 11/10/2024 11/10/2024 11/10/2024 2:43 PM ASPARAGUS BUNCHER Assessment Noted Time PHQ-9 Depression Total Score: 19 022 7:31 AM CDT documented as of this encounter Care Teams Machine Repair Person Relationship Specialty Start Date End Date Renaldo Anaya MD [address] [address] PCP - General FAMILY PRACTICE 12/21/20 documented as of this encounter
--- OUTSIDE RECORDS SUMMARY | 2025-10-13 08:18 | XMS_ITS | Clinical Summary ---
Author Organization [facility] [employer] Address [address] [place] [address] Care Team Providers Care Sign Writer Hand Name Role Phone Rosales Adamson MD Primary Care Provider + [phone] Source Comments [facility],non-owned Affiliates and Associated Physician Practices is amultiple site organization consisting of ambulatory clinics and hospital sitesin [place], [place], [place] and [place]. This disclosure is being madepursuant to the Care Everywhere program and may not contain all information available regarding this patient. Last updated 18.[facility] [employer] Allergies No known active allergies Medications * Be aware that medications may not be up to date on this document. Alwaysverify current medications with the patient. fluticasone propionate (FLONASE) 50 MCG/ACT nasal sprayIndication s:Acute maxillary sinusitis, recurrence not specified [place] 2 Sprays into each nostril once daily [...] on file Legal Sex Female 8:41 AM BARTENDER SERVER Gender Identity Not on file Sexual Orientation Not on file Last Filed Vital Signs Vital Sign Reading Time Taken Comments Blood Pressure 110/60 07/09/2018 12:31 PM CDT Pulse 91 07/09/2018 12:31 PM CDT Temperature 36.6 C (97.9 F) 07/09/2018 12:31 PM CDT Respiratory Rate 16 07/09/2018 12:31 PM CDT Oxygen Saturation 98% 10/23/2017 5:19 PM BARTENDER SERVER Inhaled Oxygen Concentration - - Weight 86.2 [...] DEPRESSION SCREENING 10/28/2024 COVID-19 VACCINE (1 - 2024-2 6 season) 2025 INFLUENZA VACCINE (#1) 2025 ZOSTER [...] patient's age to complete this topic Insurance [facility] Care Teams Sign Writer Hand Relationship Specialty Start Date End Date Rosales Adamson MD PCP - General 07/22/20
--- OUTSIDE RECORDS SUMMARY | 2025-10-13 08:18 | XMS_ITS | Encounter Summary ---
Author Organization [facility] Address [address] [place] [address] Care Team Providers Care Research Study Assistant Name Role Phone Renaldo Anaya MD Primary Care Provider Encounter Details Date Type Department Care Team (Late st Contact Info) Description 03/02/2022 Voxeo Message [facility] Patient Accounts [address] [place], [place] [phone] [facility] Provider Monthly Credit Card Payments Social [...] Rule Out 11/10/2024 11/10/2024 11/10/2024 2:43 PM DRILL SETUP OPERATOR Assessment Noted Time PHQ-9 Depression Total Score: 0 01/11/20 8:16 AM CDT documented as of this encounter Care Teams Research Study Assistant Relationship Specialty Start Date End Date Renaldo Anaya MD [address] [place] [address] PCP - General FAMILY PRACTICE 12/21/20 documented as of this encounter
--- OUTSIDE RECORDS SUMMARY | 2025-10-13 08:18 | XMS_ITS | Encounter Summary ---
Author Organization [facility] Address [address] [place] [address] Care Team Providers Care Heat Treat Puller Name Role Phone Renaldo Anaya MD Primary Care Provider Encounter Details Date Type Department Care Team (Late st Contact Info) Description 01/19/2021 MyChart Message Enc [facility] Medical Group Family Medicine - [place] [address], [address] [place] [address] Renaldo Anaya MD [address] [place], [place] [phone] RE: Question Social History Tobacco Use Types [...] Rule Out 11/10/2024 11/10/2024 11/10/2024 2:43 PM ACTUARIAL SCIENCE TEACHER documented as of this encounter Care Teams Heat Treat Puller Relationship Specialty Start Date End Date Renaldo Anaya MD [address] [address] PCP - General FAMILY PRACTICE 12/21/20 documented as of this encounter
--- OUTSIDE RECORDS SUMMARY | 2025-10-13 08:18 | XMS_ITS | Encounter Summary ---
Author Organization [facility] Address [address] [place] [address] Care Team Providers Care Extractor And Wringer Operator Name Role Phone Renaldo Anaya MD Primary Care Provider Encounter Details Date Type Department Care Team (Late st Contact Info) Description 11/06/2021 MyChart Message Enc [facility] Medical Group Family Medicine - [place] [address] [place] [address] Renaldo Anaya MD [address] [place], [place] [phone] I tested positive for covid on home [...] Coronavirus / COVID-19? Yes 11/06/2021 11:17 AM AUTOMOTIVE GENERAL MANAGER documented as of this encounter Plan of Treatment Not on file documented as of this encounter Visit Diagnoses Not on filedocumented in this encounter Additional Health Concerns Infection Onset Date Last Indicated Resolved Time COVID-19 Rule Out 11/10/2024 11/10/2024 11/10/2024 2:43 PM AUTOMOTIVE GENERAL MANAGER documented as of this encounter Care Teams Extractor And Wringer Operator Relationship Specialty Start Date End Date Renaldo Anaya MD [address] [address] PCP - General FAMILY PRACTICE 12/21/20 documented as of this encounter
--- OUTSIDE RECORDS SUMMARY | 2025-10-13 08:18 | XMS_ITS | Encounter Summary ---
Author Organization [facility] Address [address] [place] [address] Care Team Providers Care Representative Phlebotomy Services Name Role Phone Renaldo Anaya MD Primary Care Provider Encounter Details Date Type Department Care Team (Late st Contact Info) Description 08/21/2021 MyChart Message Enc [facility] Medical Group Family Medicine - [place] [address] [facility] [address] [place] [address] Renaldo Anaya MD [address] [place], [place] [phone] RE: Question Social History Tobacco Use Types [...] Rule Out 11/10/2024 11/10/2024 11/10/2024 2:43 PM REHABILITATION NURSE documented as of this encounter Care Teams Representative Phlebotomy Services Relationship Specialty Start Date End Date Renaldo Anaya MD [address] [address] PCP - General FAMILY PRACTICE 12/21/20 documented as of this encounter
--- OUTSIDE RECORDS SUMMARY | 2025-10-13 08:18 | XMS_ITS | Encounter Summary ---
Author Organization [facility] Address [address] [place] [id number] Care Team Providers Care Websphere Message Broker Developer Name Role Phone Renaldo Anaya MD Primary Care Provider Encounter Details Date Type Department Care Team (Late st Contact Info) Description 06/22/2021 MyChart Message Enc [facility] Family Medicine - [place] [address] [place] [address] Renaldo Anaya MD [address] [place], [place] [phone] RE: Medication Questions Social History Tobacco Use [...] Rule Out 11/10/2024 11/10/2024 11/10/2024 2:43 PM ROOFING APPRENTICE documented as of this encounter Care Teams Websphere Message Broker Developer Relationship Specialty Start Date End Date Renaldo Anaya MD [address] [address] PCP - General FAMILY PRACTICE 12/21/20 documented as of this encounter
--- OUTSIDE RECORDS SUMMARY | 2025-10-13 08:18 | XMS_ITS | Encounter Summary ---
Author Organization [facility] Address [address] [place] [address] Care Team Providers Care Public Relations Player Name Role Phone Renaldo Anaya MD Primary Care Provider Encounter Details Date Type Department Care Team (Late st Contact Info) Description 12/22/2021 MyChart Message Enc [facility] Family Medicine - [place] [address] [place] [address] Renaldo Anaya MD [address] [place], [place] [phone] Need a doctor s note Social History [...] Rule Out 11/10/2024 11/10/2024 11/10/2024 2:43 PM PHARMACY DELIVERY DRIVER documented as of this encounter Care Teams Public Relations Player Relationship Specialty Start Date End Date Renaldo Anaya MD [address] [address] PCP - General FAMILY PRACTICE 12/21/20 documented as of this encounter
--- OUTSIDE RECORDS SUMMARY | 2025-10-13 08:19 | XMS_ITS | Patient Health Record ---
Author Organization [facility] [place] ([address]) Address [address] [place] [address] Care Team Providers Care Wood Heel Flap Trimmer Name Role Phone Renaldo Anaya Primary Care Provider Unavailab Soraida Culver Unavailable [phone] Laure Zhong Unavailable [phone] Allergies No Known Allergies Reason For Referral No Information Medications Medication SIG (Take, Route, Frequency, Duration) [...] W/U Status Risk Notes Problem Chronic rhinitis (43290517) Chronic rhinitis (J31.0) Active confirmed Problem Uncomplicated mild persistent asthma (233348760) Mild persistent asthma, uncomplicated (J45.30) Active confirmed Problem Allergic rhinitis caused by pollen (disorder) (43730715) Allergic rhinitis due to pollen (J30.1) Active confirmed Problem Allergic rhinitis caused by animal hair and dander (505057527080412) Allergic rhinitis due to animal (cat) (dog) hair and dander (J30.81) Active confirmed Problem Allergic rhinitis (34014385) Other allergic rhinitis (J30.89) Active confirmed Problem Cough variant asthma (853790477) Cough variant asthma (J45.991) Active confirmed Problem Chronic allergic conjunctivitis (50451938) Other chronic allergic conjunctivitis (H10.45) Active confirmed Vital Signs Oximetry 99 % 11/23/2024 Blood pressure diastolic 65 mm Hg 11/23/2024 Height 69 in 11/23/2024 Blood pressure systolic 106 mm Hg 11/23/2024 Weight 219.6 lbs 11/23/2024 BMI 32.43 kg/m2 11/23/2024 Encounters Encounter Location Date Provider Diagnosis [address] [address] 11/23/2024 Soraida Lange Idiopathic urticaria L50.1 ; Angioneurotic edema, subsequent encounter T78.3XXD ; Mild persistent asthma, uncomplicated J45.30 ; Allergic rhinitis due to pollen J30.1 ; Other allergic rhinitis J30.89 and Other chronic allergic conjunctivitis H10.45 [facility] [address] [place] [address] 11/30/2024 Soraida Lange Assessments Encounter Date Diagnosis (ICD Code) Assessment Notes Treatment Notes Treatment Clinical Notes Section Notes 11/23/2024 Idiopathic urticaria (ICD-10 - L50.1) Considerations [...] to wait on spirometry at this time becbrooks she has a URI. 11/23/2024 Allergic rhinitis due to pollen (ICD-10 - J30.1) Javy clearly suffers from atopic disease based upon prior skin testing and clinical history. Accordingly, we have introduced a new, aggressive medication regimen, discussed nasal washes and allergy-specific avoidance measures. 11/23/2024 Other allergic rhinitis (ICD-10 - J30.89) 11/23/2024 Other chronic allergic conjunctivitis (ICD-10 - H10.45) Given ocular signs and symptoms I encouraged allergy avoidance measures and meds as above. If symptoms persist, consider adding additional medications including intraocular antihistamine/mast cell stabilizer, PRN 11/23/2024 Other Plan Of Treatment Pending Test Test Name Order Date -Immunoglobulin E, Total 09/01/2024 -CBC With Differential/Platelet 09/01/20 24 -Sedimentation Rate-Westergren 4 -F220 Cinnamon 09/01/2024 -CMP (14) 09/01/2024 TSH reflex to T4F 09/01/2024 Insurance Providers Payer Name Payer Address Payer Phone Subscriber Number Group Number Insured Name Patient Relationship to Insured Coverage Start Date Coverage End Date [facility] [address] [address] [place] [address] [id number] Javy Fields Self - patient is the insured 4 Medical (General) History Medical History History ICD Code Vasovagal reactions Sicca syndrome, 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
--- OUTSIDE RECORDS SUMMARY | 2025-10-13 08:19 | XMS_ITS | Clinical Summary ---
Author Organization [facility] Address [address] [place] [address] Care Team Providers Care Professor Of Rhetoric Name Role Phone Renaldo Anaya MD Primary [...] gangrene 07/25/2018 Mild persistent asthma without complication 06/29 Presence of cardiac pacemaker 08/12/2017 Recurrent genital HSV (herpes simplex virus) inf ection 11/28/2015 Sjogren-Viky syndrome 04/11/2015 Resolved Problems Problem Noted Date Diagnosed Date Resolved Date Impingement syndrome of right shoulder 08/10/2021 08/09/2022 Dysthymia 05/24/2021 06/15/2024 Diarrhea, unspecified type 01/18/2021 0 05/24/2021 Asthma 02/03/2018 11/07/2022 Fear of flying 05/01/2016 12/12/2023 GERD (gastroesophageal reflux disease) 11/18/2015 11/07/2022 Primary insomnia 04/11/2015 06/15/2024 Encounter for preventive health examination 04/08/2015 12/26/2020 Immunizations Immunization Administration Dates Next Due Tdap [...] 12/12/2024 12/12/2023, 11/07/2022 COVID-19 Vaccine (1 - 2024-2 6 season) 2025 Influenza Adult (#1) 2025 Mammogram Screening 09/17/2025 09/17/2023, 08/07/2023 DTaP, Tdap and Td Vaccines ( 2 - Td or Tdap) 09/14/2032 09/14/2022 PHQ-2 ([facility]) Completed 02/26/2025 Hepatitis A Vaccines Aged Out No long er eligible based on patient's age to complete this topic Meningococcal B Vaccine Aged Out No l [...] MARGARET LT DIGI Routine 09/17/2023 2:54 PM HOSPITAL HOUSEKEEPER Abnormal mammogram from Last 3 Months or Most Recently Relevant to Health Maintenance Results * MG DIAG W MARGARET LT DIGI (09/17/2023 2:54 PM HOSPITAL HOUSEKEEPER) Anatomical Region Laterality Modality Breast Left Mammography 09/17/2023 3:02 PM HOSPITAL HOUSEKEEPER Narrative 09/17/2023 3:03 PM HOSPITAL HOUSEKEEPER Examination: Digital left diagnostic mammogram with 3-D [...] Relevant to Health Maintenance Insurance Care Teams Professor Of Rhetoric Relationship Specialty Start Date End Date Renaldo Anaya MD [address] [facility] [address] [place], [place] [phone] PCP - General FAMILY PRACTICE 12/21/20
--- OUTSIDE RECORDS SUMMARY | 2025-10-13 08:22 | XMS_ITS | Clinical Summary ---
Author Organization [facility] Address [address] [place] [address] Care Team Providers Care Rn Telehealth Name Role Phone Pcp, No Primary Care Provider [phone] Social History Tobacco Use Types Packs/Day Years Used Date Smoking Tobacco: Never Assessed Comments Unknown Sex and Gender Information Value Date Recorded Sex Assigned at Not on file Legal Sex Female 5:19 PM EST Gender Identity Not on file Sexual Orientation Not on file Plan of Treatment Not on file Medical Devices Not on file [place] [address] [place] [address] Care Teams Rn Telehealth Relationship Specialty Start Date End Date Pcp, Emma PCP - General Family Medicine 11/07/20
--- NOTE | 2025-10-13 08:39 | ED.URI ---
HPI - URI/Sore Throat General Chief Complaint: Upper Respiratory Infection Stated Complaint: URI Time Seen by Provider: 10/13/25 08:20 Source: patient and RN notes reviewed Mode of arrival: ambulatory Limitations: no limitations History of Present Illness HPI Narrative: 49-year-old female patient presents Express Care complaining of upper respiratory symptoms for over a week. Patient says symptoms were improving however over the weekend she developed worsening congestion, sinus pressure, mucopurulent nasal drainage. Patient is also complaining of ear pain. Patient did a virtual visit this morning it was prescribed Augmentin for sinus infection but was told to get her ears look that. Patient denies any other symptoms, fevers, body eczema chills, nausea vomiting, diarrhea, chest pain, difficulty breathing every other symptoms. Related Data Home Medications ?Medication ?Instructions ?Recorded ?Confirmed ?Last Taken ?Type THC/CBD edible BYMOUTH PRN 06/30/25 08/24/25 Unknown History albuterol sulfate 90 mcg/actuation 1 puff inhalation Q4H PRN 06/30/25 08/24/25 Unknown History aerosol inhaler (Ventolin HFA) epinephrine 0.3 mg/0.3 mL 0.3 mg IM ONCE 06/30/25 08/24/25 Unknown History injection, auto-injector (EpiPen) famotidine 20 mg tablet (Pepcid) 20 mg PO QHS 06/30/25 08/24/25 Unknown History loratadine 10 mg tablet (Claritin) 10 mg PO .prn 06/30/25 08/24/25 Unknown History melatonin 1 mg tablet 2 mg PO QHS PRN 06/30/25 08/24/25 Unknown History estradiol 0.025 mg/24 hr topical 08/24/25 08/24/25 Unknown History semiweekly transdermal patch progesterone micronized 100 mg mg PO 08/24/25 08/24/25 Unknown History capsule Allergies Allergy/AdvReac Type Severity Reaction Status Date / Time adhesive tape Allergy Mild RED SKIN Verified 10/13/25 08:08 Review of Systems Review of Systems: CONSTITUTIONAL: Denies fever, chills, or sweats. EYES: Denies visual changes, redness, or discharge. ENT: Denies sore throat,. Positive for congestion,, rhinorrhea, otalgia, sinus pressure. CARDIOVASCULAR: Denies chest pain, palpitations, or edema. RESPIRATORY: Positive cough. Negative for wheezing or dyspnea. GASTROINTESTINAL: Denies abdominal pain, nausea, vomiting, or diarrhea. GENITOURINARY: Denies dysuria or hematuria. SKIN: Denies rash or itching. MUSCULOSKELETAL: Denies back pain, joint pain, or myalgia. NEUROLOGIC: Denies headache, numbness, or weakness. PSYCHIATRIC: Denies anxiety or depression. All other systems reviewed are negative, except as documented in HPI. [facility], [facility] Past Medical History Medical History Thyroid nodule Sjogren's disease Neurocardiogenic syncope History of gluten sensitivity Frozen shoulder Hot flashes Melida's disease Geographic tongue Alopecia areata Raynaud disease Pacemaker Fibroid tumor Endometriosis Insomnia Ulcer Thyroid disease Migraine GERD (gastroesophageal reflux disease) COPD (chronic obstructive pulmonary disease) Asthma Anxiety Anemia Allergies Surgical History Surgical History H/O: hysterectomy H/O LEEP History of tonsillectomy Family History Family History Mother Asthma Depression Heart disease Hypertension Thyroid disorder Cancer Father Asthma Depression Heart disease Thyroid disorder Cancer Sibling Asthma Depression Heart disease Thyroid disorder Social History Social History Smoking status: Never smoker Alcohol intake: current Drinks per week: 4 Substance use: current Substance use type: unknown Lack of Transportation: No Lack of Food: Never True Current Housing: I Have Housing Concerned About Future Housing: No Difficulty Paying Gas/Electric Bills: No Difficulty Paying for Meds: No Currently Unemployed: No Education: Associate Degree Living arrangements: with family Occupation/Education: occupation Spiritual care concerns: No Agree to blood products: Yes Comments At the time of my signature, I reviewed and agree with the nursing past medical, surgical, social, and family history. There is no relevant family history pertinent to the patient complaint. Exam Narrative: GENERAL: This is a well-nourished, well-developed adult, in no apparent distress. They are non ill-appearing, nontoxic appearing. HEAD: normocephalic, atraumatic. EYES: Sclera clear/white. Conjunctiva normal. Vision is grossly intact. Extraocular movements intact EARS: External ears normal, auditory canals clear and without drainage, TMs normal without perforation. Hearing grossly intact. NOSE: External nose normal with no obvious nasal discharge, nasal turbinates erythematous, with rhinorrhea. THROAT: Mucous membranes moist, posterior pharynx erythematous with PND. Uvula midline. NECK: Neck supple, non-tender without lymphadenopathy, masses or thyromegaly. CARDIOVASCULAR: Regular rate and rhythm without murmurs, gallops, or rubs. RESPIRATORY: Clear to auscultation. Breath sounds equal bilaterally. No wheezes, rales, or rhonchi. SKIN: warm, Dry, intact with no suspicious lesions or rash, good texture and turgor. NEURO: awake, alert, and oriented to person, place and time. There were no obvious focal neurologic abnormalities. EXTREMITIES: No joint tenderness, effusion, or edema noted. BACK: Nontender without deformity. No CVA tenderness. Course Course Level of Care: Express Care Visit Vital Signs Vital signs: Vital Signs Temperature 97.9 F 10/13/25 08:16 Pulse Rate 81 10/13/25 08:16 Respiratory Rate 18 10/13/25 08:16 Blood Pressure 111/82 10/13/25 08:16 Pulse Oximetry 98 10/13/25 08:16 Temperature 97.9 F 10/13/25 08:16 Pulse Rate 81 10/13/25 08:16 Respiratory Rate 18 10/13/25 08:16 Blood Pressure 111/82 10/13/25 08:16 Pulse Oximetry 98 10/13/25 08:16 [facility] Narrative Medical decision making narrative: Patient likely has sinusitis, advised patient take the Augmentin as directed that she was prescribed this morning, no evidence of ear infection. Discussed supportive care. Discussed physical exam findings. Advised supportive measures and signs/symptoms to go to the ER. Pt is appropriate for outpt treatment and f/u. Differential Diagnosis Differential Diagnosis: Differential diagnostic considerations for upper respiratory infection include upper respiratory infection, croup, otitis media, sinusitis, viral infection, bronchitis, influenza, pharyngitis, strep, uvulitis. Critical Care Time Critical Care Time Critical Care Time: No Discharge Plan Discharge Clinical Impression: Sinusitis Qualifiers: Sinusitis location: unspecified location Chronicity: acute Recurrence: non-recurrent Qualified Code(s): J01.90 - Acute sinusitis, unspecified Patient Disposition: Home Condition: Stable Instructions: Antibiotic Form, Sinusitis (ED) Additional Instructions: Take the antibiotics as directed that you were prescribed this morning, and complete the course even if you start to feel better. You may use a Neti pot saline rinse 3 times a day with lukewarm distilled water You may take ibuprofen 600 mg to 800 mg every 6-8 hours. Do not exceed more than 800 mg of ibuprofen per dose. Do not exceed more than 3200 mg ibuprofen in a day. You may take up to 1000 mg Tylenol every 6-8 hours. Do not exceed 1000 mg per dose, do exceed more than 4000 mg of Tylenol in a day. Use a humidifier or vaporizer at night. Drink plenty of water. 8-10 glasses per day. Use flonase 2 times per day for 5 days then as needed Take mucinex 2 times per day and be sure to take with 8oz of water. Follow up with Primary provider in 3-5 days Please go to the ER if he develops any difficulty breathing, chest pain, vomiting, worsening symptoms, or any other concerns Patient Language: South Korean Prescriptions: No Action progesterone micronized 100 mg capsule PO estradiol 0.025 mg/24 hr patch semiweekly topical azithromycin 250 mg tablet See Rx Instructions PO .COMPLEX Qty: 6 0RF Rx Instructions: For 250 mg dose pack: take 500 mg today (day 1), then 250 mg for 4 days (days 2-5) PO prednisone 20 mg tablet 40 mg PO DAILY Qty: 10 0RF famotidine [Pepcid] 20 mg tablet 20 mg PO QHS albuterol sulfate [Ventolin HFA] 90 mcg/actuation HFA aerosol inhaler 1 puff inhalation Q4H PRN loratadine [Claritin] 10 mg tablet 10 mg PO .prn melatonin 1 mg tablet 2 mg PO QHS PRN THC/CBD edible BYMOUTH PRN epinephrine [EpiPen] 0.3 mg/0.3 mL auto-injector 0.3 mg IM ONCE Rx Instructions: as a single dose; may repeat once Follow-up/Referrals: Nat Segundo APRN [Primary Care Provider, Internal Medicine] Stand Alone Forms: Work/School Release IP Time of Disposition: 08:35
== END 2025-10-13 08:37 | disposition home or self-care (01) ==
PROVIDERS: PCP Nurse Practitioner Family
DX: J01.90 Acute sinusitis, unspecified (principal); E06.3 Autoimmune thyroiditis; I73.00 Raynaud's syndrome without gangrene; Z95.0 Presence of cardiac pacemaker; N80.9 Endometriosis, unspecified; K21.9 Gastro-esophageal reflux disease without esophagitis; J44.9 Chronic obstructive pulmonary disease, unspecified; M35.00 Sjogren syndrome, unspecified; L63.9 Alopecia areata, unspecified
CPT/HCPCS: 99211; G0463